=== PATIENT | female | born 1960 | race Caucasian/White ===

== ENCOUNTER 2017-05-13 10:20 | Emergency (ER) | payer OTHER ==
--- NOTE | 2017-05-13 10:38 | PHYS DOC ---
Past Medical History Past Medical History: CAD, Diabetes-Type II, Hypertension Past Surgical History: Coronary Bypass Surgery, Hysterectomy, Other Additional Past Surgical Histo: CABG X3 2004, gastric bypass 2009 Alcohol Use: None Drug Use: None Adult General Chief Complaint Chief Complaint: ABNORMAL LABS [facility] HPI Patient is a 56 year old female presents to the emergency department with a history of elevated K+ patient had blood work completed last Wednesday. She was at the GI clinic today and sent her in to the emergency department. Patient also states she is having right upper abdominal pain and discomfort. Pain is a 2 /10. Patient states that she was suppose to have CT scan of her abd and pelvis in which the doctors office has not completed paper work appropriate for the procedure. Patient denies fever, chills, nausea or vomiting. Review of Systems Review of Systems Constitutional: Denies fever or chills [] Eyes: Denies change in visual acuity, redness, or eye pain [] HENT: Denies nasal congestion or sore throat [] Respiratory: Denies cough or shortness of breath [] Cardiovascular: No additional information not addressed in HPI [] GI: right upper quadrant abdominal pain, denies nausea, vomiting, bloody stools or diarrhea [] : Denies dysuria or hematuria [] Musculoskeletal: Denies back pain or joint pain [] Integument: Denies rash or skin lesions [] Neurologic: Denies headache, focal weakness or sensory changes [] Endocrine: Denies polyuria or polydipsia [] Patient also C/o elevated K+ per Dr Office Current Medications Current Medications Current Medications Medications (Trade) Dose Ordered Sig/Henrietta Start Time Stop Time Status Last Admin Dose Admin Info (Do NOT chart on this entry -- for MONITORING) 1 each PRN DAILY PRN 05/13/17 11:15 05/13/17 13:30 DC Iohexol (Omnipaque 300 Mg/ml) 60 ml 1X ONCE 05/13/17 11:15 05/13/17 11:16 DC 05/13/17 11:28 60 ML Sodium Chloride 1,000 ml @ 1,000 mls/hr 1X ONCE 05/13/17 11:15 05/13/17 12:14 DC 05/13/17 11:19 1,000 MLS/HR Allergies Allergies Allergies Coded Allergies Type Severity Reaction Last Updated Verified Penicillins Allergy Unknown 12/18/14 No cephalexin Allergy Unknown 10/18/14 No codeine Allergy Unknown 10/18/14 No hydrochlorothiazide Allergy Unknown 10/18/14 No morphine Allergy Unknown 10/18/14 No triamterene Allergy Unknown 10/18/14 No Physical Exam Physical Exam Constitutional: Well developed, well nourished, no acute distress, non-toxic appearance. [] HENT: Normocephalic, atraumatic, bilateral external ears normal, oropharynx moist, no oral exudates, nose normal. [] Eyes: PERRLA, EOMI, conjunctiva normal, no discharge. [] Neck: Normal range of motion, no tenderness, supple, no stridor. [] Cardiovascular:Heart rate regular rhythm, no murmur [] Lungs & Thorax: Bilateral breath sounds clear to auscultation [] Abdomen: Bowel sounds hypoactive, soft, right upper quadrant tenderness, no masses, no pulsatile masses. Positive Leiva sign. Skin: Warm, dry, no erythema, no rash. [] Back: No tenderness Extremities: No tenderness, no cyanosis, no clubbing, ROM intact, no edema. [] Neurologic: Alert and oriented X 3, normal motor function, normal sensory function, no focal deficits noted. [] Psychologic: Affect normal, judgement normal, mood normal. [] Current Patient Data Vital Signs Vital Signs Date Time Temp Pulse Resp B/P (MAP) Pulse Ox O2 Delivery O2 Flow Rate FiO2 05/13/17 13:28 74 150/60 (90) 98 05/13/17 10:45 Room Air 05/13/17 10:31 98.3 18 98.3 Lab Values Laboratory Tests Test 05/13/17 10:30 White Blood Count 5.9 x10^3/uL (4.0-11.0) Red Blood Count 4.56 x10^6/uL (3.50-5.40) Hemoglobin 12.2 g/dL (12.0-15.5) Hematocrit 36.8 % (36.0-47.0) Mean Corpuscular Volume 81 fL (79-100) Mean Corpuscular Hemoglobin 27 pg (25-35) Mean Corpuscular Hemoglobin Concent 33 g/dL (31-37) Red Cell Distribution Width 17.2 % (11.5-14.5) H Platelet Count 273 x10^3/uL (140-400) Neutrophils (%) (Auto) 65 % (31-73) Lymphocytes (%) (Auto) 25 % (24-48) Monocytes (%) (Auto) 7 % (0-9) Eosinophils (%) (Auto) 2 % (0-3) Basophils (%) (Auto) 1 % (0-3) Neutrophils # (Auto) 3.9 x10^3uL (1.8-7.7) Lymphocytes # (Auto) 1.5 x10^3/uL (1.0-4.8) Monocytes # (Auto) 0.4 x10^3/uL (0.0-1.1) Eosinophils # (Auto) 0.1 x10^3/uL (0.0-0.7) Basophils # (Auto) 0.1 x10^3/uL (0.0-0.2) Sodium Level 134 mmol/L (136-145) L Potassium Level 4.5 mmol/L (3.5-5.1) Chloride Level 99 mmol/L (98-107) Carbon Dioxide Level 24 mmol/L (21-32) Anion Gap 11 (6-14) Blood Urea Nitrogen 22 mg/dL (7-20) H Creatinine 1.2 mg/dL (0.6-1.0) H Estimated GFR (Cockcroft-Gault) 46.5 BUN/Creatinine Ratio 18 (6-20) Glucose Level 282 mg/dL (70-99) H Calcium Level 9.5 mg/dL (8.5-10.1) Total Bilirubin 0.4 mg/dL (0.2-1.0) Aspartate Amino Transferase (AST) 20 U/L (15-37) Alanine Aminotransferase (ALT) 18 U/L (14-59) Alkaline Phosphatase 79 U/L (46-116) Total Protein 7.6 g/dL (6.4-8.2) Albumin 3.3 g/dL (3.4-5.0) L Albumin/Globulin Ratio 0.8 (1.0-1.7) L Amylase Level 35 U/L (25-115) Lipase 96 U/L (73-393) Laboratory Tests 05/13/17 10:30 Laboratory Tests 05/13/17 10:30 EKG EKG EKG completed with HR 85 SR noted no STEMI per Dr Joo Martinez Radiology/Procedures Radiology/Procedures [][facility] [address] [place] [address] IMAGING REPORT Signed PATIENT: AMAYA HAYS ACCOUNT: [id number] : 1960 LOCATION: ER AGE: 56 SEX: F EXAM STATUS: REG ER ORD. PHYSICIAN: ASIF ALDRIDGE APRN REASON: right upper quadrant abdominal pain PROCEDURE: CT ABD PELV W/ IV CONTRST ONLY CT of the abdomen and pelvis with contrast, 05/13/2017: History: Right upper quadrant pain Multidetector CT imaging was performed following an IV bolus injection of iodinated contrast material. No oral contrast material was administered for this study. There are mild peripheral opacities in both lung bases compatible with atelectasis and/or scarring. There is slight interlobular septal thickening in the lung bases. No hepatic mass or bile duct dilatation is seen. There is a small area of slightly increased density along the posterior wall of the gallbladder raising the possibility of sludge or small calculi. No pericholecystic edema is seen. No pancreatic abnormality is detected. The spleen is of normal size. Calcifications in the hilar regions of both kidneys appear to be vascular. There is no evidence of a renal mass or hydronephrosis. The ureters are unremarkable. There is moderate calcific plaquing of the abdominal aorta and its branches. There is no evidence of aneurysm. No abdominal or pelvic adenopathy is seen. The uterus is surgically absent. The appendix shows no abnormality. There are surgical sutures related to the stomach and small bowel. There is a small focus of bowel dilatation at an anastomotic site in the left midabdomen. There is no general bowel loop dilatation to suggest significant obstruction. No free fluid or free air is evident in the abdomen or pelvis. IMPRESSION: 1. Previous gastric and small bowel surgery. 2. Tiny dependent opacity in the gallbladder suggesting sludge versus tiny gallstones. 3. No acute abdominal or pelvic abnormality is detected. PQRS Compliance Statement: One or more of the following individualized dose reduction techniques were utilized for this examination: 1. Automated exposure control 2. Adjustment of the mA and/or kV according to patient size 3. Use of iterative reconstruction technique DICTATED and SIGNED BY: ROSA STILES MD DATE: 05/13/17 1211 CC: ASIF ALDRIDGE APRN; ABE MARTINEZ DO; STEPHANIE OCASIO MD ~ Course & Med Decision Making Course & Med Decision Making Pertinent Labs and Imaging studies reviewed. (See chart for details) Patient's CBC, CMP are within normal limits. Patient's potassium is 4.5. Patient states that the doctors office the potassium was 6.1. Explained to patient that the results from the previous lab draw that was 6.1 maybe slightly hemolyzed causing it to be elevated. Patient's ultrasound is still pending at this time. Her BUN/creatinine are slightly elevated patient states that she does not drink very much fluid at home. She is provided with IV fluid here in the emergency department. Anticipate discharging the patient home once the IV fluids are completed in these CAT scan results are completed. CT results are negative as the gallbladder shows sludge as opposed to gallstones. Patient will be recommended to avoid fried greasy fatty foods. She' ll be recommended to drink plenty of fluids such as water Gatorade or propel. Patient will be discharged home in stable condition signs symptoms to return back to emergency department as been provided. Patient agrees with discharge instructions treatment regimens and follow-up recommendations. [] Dragon Disclaimer Dragon Disclaimer This electronic medical record was generated, in whole or in part, using a voice recognition dictation system. Departure Departure Impression: Primary Impression: Abdominal pain Additional Impression: Serum potassium elevated Disposition: HOME, SELF-CARE Condition: STABLE Referrals: STEPHANIE OCASIO MD (PCP) Patient Instructions: Abdominal Pain (Nonspecific) Additional Instructions: Your blood work was within normal limits. Your CT scan shows sludge in the gallbladder area does not show any gallstones. Avoid fried greasy fatty foods. Keep your appointment with the GI physicians if you have any follow-up appointments. Follow-up to primary care physician in the next week. Return back to emergency department sign symptoms of become worse. Problem Qualifiers ASIF ALDRIDGE APRN May 13, 2017 10:38
[2017-05-13 10:44] LABS: BASO # 0.1 x10^3/uL (0.0-0.2); BASO % 1 % (0-3); EOS % 2 % (0-3); HEMATOCRIT 36.8 % (36.0-47.0); HEMOGLOBIN 12.2 g/dL (12.0-15.5); LYMPH # 1.5 x10^3/uL (1.0-4.8); LYMPH % 25 % (24-48); MEAN CORPUSCULAR HEMOGLOBIN 27 pg (25-35); MEAN CORPUSCULAR HGB CONC 33 g/dL (31-37); MEAN CORPUSCULAR VOLUME 81 fL (79-100); MONO % 7 % (0-9); NEUT % 65 % (31-73); PLATELET COUNT 273 x10^3/uL (140-400); RED BLOOD COUNT 4.56 x10^6/uL (3.50-5.40); RED CELL DISTRIBUTION WIDTH 17.2 % (11.5-14.5); WHITE BLOOD COUNT 5.9 x10^3/uL (4.0-11.0)
[2017-05-13 10:53] LABS: CALCIUM 9.5 mg/dL (8.5-10.1); CREATININE 1.2 mg/dL (0.6-1.0); GFR 46.5; POTASSIUM 4.5 mmol/L (3.5-5.1)
[2017-05-13 11:00] LABS: ALBUMIN 3.3 g/dL (3.4-5.0); ALBUMIN/GLOBULIN RATIO 0.8 (1.0-1.7); TOTAL BILIRUBIN 0.4 mg/dL (0.2-1.0); TOTAL PROTEIN 7.6 g/dL (6.4-8.2)
[2017-05-13 11:01] LABS: AMYLASE 35 U/L (25-115)
[2017-05-13] MEDS ORDERED: CONTRAST GIVEN MC PRN (11:15)
[2017-05-13] MEDS ORDERED: IOHEXOL 300 MG/ML 75 ML VIAL IV ONE (11:15)
[2017-05-13] MEDS ORDERED: IV NORMAL SALINE 1000ML BAG 1,000 ML IV ONE (11:15)
--- NOTE | 2017-05-13 11:24 | EKG ---
[facility] [address] [place] [address] Test Date: 2017-05-13 Test Time: 10:35:46 Pat Name: AMAYA HAYS Department: Room: Gender: F [employer] Up: : 1960 Requested By: ASIF ALDRIDGE Order Number: [id number] Reading MD: Measurements Intervals Bartlett Rate: 85 P: 35 UT: 160 QRS: 24 QRSD: 96 T: 61 QT: 378 QTc: 455 Interpretive Statements SINUS RHYTHM QRS(T) CONTOUR ABNORMALITY CONSIDER ANTEROSEPTAL MYOCARDIAL DAMAGE ST & T ABNORMALITY, CONSIDER HIGH LATERAL ISCHEMIA OR LEFT VENTRICULAR STRAIN ABNORMAL ECG RI6.01 No previous ECG available for comparison
--- NOTE | 2017-05-13 12:21 | RAD ---
CT of the abdomen and pelvis with contrast, 05/13/2017: History: Right upper quadrant pain Multidetector CT imaging was performed following an IV bolus injection of iodinated contrast material. No oral contrast material was administered for this study. There are mild peripheral opacities in both lung bases compatible with atelectasis and/or scarring. There is slight interlobular septal thickening in the lung bases. No hepatic mass or bile duct dilatation is seen. There is a small area of slightly increased density along the posterior wall of the gallbladder raising the possibility of sludge or small calculi. No pericholecystic edema is seen. No pancreatic abnormality is detected. The spleen is of normal size. Calcifications in the hilar regions of both kidneys appear to be vascular. There is no evidence of a renal mass or hydronephrosis. The ureters are unremarkable. There is moderate calcific plaquing of the abdominal aorta and its branches. There is no evidence of aneurysm. No abdominal or pelvic adenopathy is seen. The uterus is surgically absent. The appendix shows no abnormality. There are surgical sutures related to the stomach and small bowel. There is a small focus of bowel dilatation at an anastomotic site in the left midabdomen. There is no general bowel loop dilatation to suggest significant obstruction. No free fluid or free air is evident in the abdomen or pelvis. IMPRESSION: 1. Previous gastric and small bowel surgery. 2. Tiny dependent opacity in the gallbladder suggesting sludge versus tiny gallstones. 3. No acute abdominal or pelvic abnormality is detected. PQRS Compliance Statement: One or more of the following individualized dose reduction techniques were utilized for this examination: 1. Automated exposure control 2. Adjustment of the mA and/or kV according to patient size 3. Use of iterative reconstruction technique
[2017-05-13 13:28] VITALS: BP 150/60
== END 2017-05-13 13:11 | disposition home or self-care (01) ==
LOC: ER 10:20
DX: R10.11 Right upper quadrant pain (principal); R74.8 Abnormal levels of other serum enzymes; I25.10 Atherosclerotic heart disease of native coronary artery without angina pectoris; E11.9 Type 2 diabetes mellitus without complications; I10 Essential (primary) hypertension; Z95.1 Presence of aortocoronary bypass graft; Z98.84 Bariatric surgery status; Z90.710 Acquired absence of both cervix and uterus; Z88.0 Allergy status to penicillin; Z88.1 Allergy status to other antibiotic agents; Z88.5 Allergy status to narcotic agent; Z88.8 Allergy status to other drugs, medicaments and biological substances
CPT/HCPCS: 36415; 74177; 80053; 82150; 83690; 85027; 93005; 96360; 99285; J7030; Q9967

== ENCOUNTER 2018-02-14 16:47 | Emergency (ER) | payer OTHER ==
[2018-02-14] MEDS: KETOROLAC 60 MG/2 ML INJ. IM (18:12)
[2018-02-14] MEDS: ORPHENADRINE CITRATE 60 MG/2 ML VIAL. IM (18:12)
== END 2018-02-14 18:25 | disposition home or self-care (01) ==
LOC: ER 16:47
DX: M54.42 Lumbago with sciatica, left side (principal); M25.551 Pain in right hip; E11.9 Type 2 diabetes mellitus without complications; E78.00 Pure hypercholesterolemia, unspecified; I11.9 Hypertensive heart disease without heart failure; Z95.1 Presence of aortocoronary bypass graft; Z98.84 Bariatric surgery status; Z90.710 Acquired absence of both cervix and uterus; Z90.49 Acquired absence of other specified parts of digestive tract; Z88.0 Allergy status to penicillin; Z88.1 Allergy status to other antibiotic agents; Z88.5 Allergy status to narcotic agent; Z88.8 Allergy status to other drugs, medicaments and biological substances
CPT/HCPCS: 96372; 99284-25; J1885; J2360

== ENCOUNTER 2021-08-08 15:37 | Inpatient (IN) | payer OTHER ==
[~2021-08-08] VITALS: Ht 162.6 cm; Wt 136.8 kg
[~2021-08-08 15:37] MED LIST: HYDR-3164 PO; ORPH100T PO; PRED50TA PO
--- NOTE | 2021-08-08 15:58 | PHYS DOC ---
Past Medical History Past Medical History: Cancer, Diabetes-Type II, High Cholesterol, Heart D isease, Hypertension Additional Past Medical Histor: UTERINE CA, Past Surgical History: Cholecystectomy, Coronary Bypass Surgery, Hysterectomy, Other Additional Past Surgical Histo: CABG X3 2003, gastric bypass 2008, CAROTID SX, CATARACTS BILAT Smoking Status: Former Smoker Alcohol Use: Rarely Drug Use: None General Adult EDM: Chief Complaint: Fall HPI: HPI: 61-year-old female with a history of super morbid obesity, lymphedema, frequent falls presents the emergency department with a fall off her toilet earlier today. She reports that she was trying to get up off the toilet, was unable to power herself and eventually fell onto her knees and then onto her right side. She now complains of pain in the right elbow and right shoulder area. She denies any head trauma, loss of consciousness or any preceding symptoms. The patient denies nausea, vomiting, fever, chills, shortness of breath, abdominal pain, urinary symptoms, cough, recent trauma, or any other complaints. Review of Systems: Review of Systems: ROS otherwise reviewed as negative except for what was mentioned in HPI Heart Score: C/O Chest Pain: No Allergies: Allergies: Allergies Coded Allergies Type Severity Reaction Last Updated Verified Penicillins Allergy Intermediate 02/14/18 No cephalexin Allergy Intermediate 02/14/18 No codeine Allergy Intermediate 02/14/18 No hydrochlorothiazide Allergy Intermediate 02/14/18 No morphine Allergy Intermediate 02/14/18 No triamterene Allergy Intermediate 02/14/18 No Physical Exam: PE: Constitutional: Super morbidly obese, chronically ill appearance. Anxious. HENT: Atraumatic, bilateral external ears normal, nose normal. Eyes: PERRLA, EOMI, conjunctiva normal, no discharge. Neck: Normal range of motion, supple, no stridor. Cardiovascular: Heart rate regular rhythm. 2+ radial pulses Lungs & Thorax: No respiratory distress, symmetrical expansion. Abdomen: Soft, no tenderness Skin: Warm, dry. Extremities: Right elbow tenderness, right shoulder tenderness, no deformity, no overlying skin changes. chronic lymphedema in lower extremities Neurologic: Alert and oriented X 3, normal motor function, normal sensory function, no focal deficits noted. GCS 15. Current Patient Data: Vital Signs: Vital Signs Date Time Temp Pulse Resp B/P (MAP) Pulse Ox O2 Delivery O2 Flow Rate FiO2 10/8/21 15:40 98.5 101 22 160/76 (104) 96 Room Air 98.5 Radiology/Procedures: Radiology/Procedures: PROCEDURE: SHOULDER 2+V RIGHT Right shoulder 3 views: Reason for examination: Pain. No acute fracture or dislocation is seen. The bone density is normal. No abnormal periosteal reaction is seen. There is some mild degenerative change at the acromioclavicular joint. Remaining joint spaces are fairly well-maintained. IMPRESSION: Mild degenerative change at the acromioclavicular joint. No acute abnormality seen at the right shoulder. Electronically signed by: Courtney Soto MD (08/08/2021 4:36 PM) PROCEDURE: ELBOW RIGHT 3V EXAM: AP, lateral and radial head views of the right elbow DATE: 08/08/2021 4:28 PM INDICATION: Reason: right elbow pain / Spl. Instructions: / History: COMPARISON: No Prior FINDINGS: No elbow joint effusion. No acute fracture or dislocation. Vascular calcifications are seen. No significant soft tissue swelling. IMPRESSION: No acute fracture or dislocation. Electronically signed by: Santana Gale MD (08/08/2021 4:33 PM) Course & Med Decision Making: Course & Med Decision Making Patient is able to do her activities of daily living and her is unable to care for her, as he is also morbidly obese, does not have the strength to get her up off the toilet or move around the bed and the patient states that she has soiled herself multiple times because she cannot move. She would likely benefit from PT/OT, placement in either a rehab facility or [facility] s ervices. I offered admission to the patient and her , who discussed it and would prefer to be admitted due to concerns for ability to take care of the patient at home. Dr. Edwards to admit to the hospital Departure Departure Impression: Primary Impression: Falls frequently Additional Impression: Failure to thrive in adult Disposition: 09 ADMITTED INPATIENT Admitting Physician: ALFONSO Cook) Referrals: STEPHANIE OCASIO MD (PCP) BATOOL STONE DO Aug 08, 2021 15:58
[2021-08-08] MEDS ORDERED: ACETAMINOPHEN 500 MG TABLET PO ONE (16:00)
--- NOTE | 2021-08-08 16:36 | RAD ---
EXAM: AP, lateral and radial head views of the right elbow DATE: 08/08/2021 4:28 PM INDICATION: Reason: right elbow pain / Spl. Instructions: / History: COMPARISON: No Prior FINDINGS: No elbow joint effusion. No acute fracture or dislocation. Vascular calcifications are seen. No signi ficant soft tissue swelling. IMPRESSION: No acute fracture or dislocation. Electronically signed by: Santana Gale MD (08/08/2021 4:33 PM) [id number]
--- NOTE | 2021-08-08 16:38 | RAD ---
Right shoulder 3 views: Reason for examination: Pain. No acute fracture or dislocation is seen. The bone density is normal. No abnormal periosteal reaction is seen. There is some mild degenerative change at the acromioclavicular joint. Remaining joint spac es are fairly well-maintained. IMPRESSION: Mild degenerative change at the acromioclavicular joint. No acute abnormality seen at the right shoulder. Electronically signed by: Courtney Soto MD (08/08/2021 4:36 PM) VANESSA
[2021-08-08] MEDS ORDERED: ONDANSETRON PF 4 MG/2 ML VIAL. IVP PRN (17:30)
[2021-08-08] MEDS ORDERED: ACETAMINOPHEN 325 MG TABLET. PO PRN (17:30)
[2021-08-08] MEDS ORDERED: fentaNYL PF VIAL 100 MCG/2 ML VIAL IVP PRN (17:30)
[2021-08-08 18:08] LABS: BASO % 0 % (0-3); EOS % 1 % (0-3); HEMATOCRIT 32.5 % (36.0-47.0); HEMOGLOBIN 10.2 g/dL (12.0-15.5); LYMPH # 0.4 x10^3/uL (1.0-4.8); LYMPH % 6 % (24-48); MEAN CORPUSCULAR HEMOGLOBIN 28 pg (25-35); MEAN CORPUSCULAR HGB CONC 31 g/dL (31-37); MEAN CORPUSCULAR VOLUME 90 fL (79-100); MONO # 0.3 x10^3/uL (0.0-1.1); MONO % 5 % (0-9); NEUT # 5.4 x10^3/uL (1.8-7.7); NEUT % 88 % (31-73); PLATELET COUNT 239 x10^3/uL (140-400); RED CELL DISTRIBUTION WIDTH 19.8 % (11.5-14.5); WHITE BLOOD COUNT 6.2 x10^3/uL (4.0-11.0)
[2021-08-08 18:12] LABS: CREATININE 1.6 mg/dL (0.6-1.0); GFR 32.8; POTASSIUM 4.2 mmol/L (3.5-5.1)
[2021-08-08] MEDS: oxyCODONE/APAP 10/325 1 TAB TABLET PO PRN ×2 (18:30→22:22)
--- NOTE | 2021-08-08 18:33 | HP ---
ADMIT DATE: 08/08/2021 CHIEF COMPLAINT: Falls, bruising, weakness, probable failure to thrive. HISTORY OF PRESENT ILLNESS: The patient is a pleasant 61-year-old female who appears older than her stated age. She is obese. She has chronic lymphedema. Her lower extremities are swollen with some cellulitis and some oozing wounds. She keeps falling. Apparently, she fell off her toilet today, she was trying to get up off the toilet. Her could not get her back up when she was on the ground. They had to call EMS. I discussed the case with the ER physician. It appears she needs placement. We are going to admit the patient, do some wound care and get geriatric social work professor involved and see if maybe we can get shelter and/or long-term care placement. PAST MEDICAL HISTORY: Chronic pain and she states she is on oxycodone every 4 hours, narcotic dependence, uterine cancer, diabetes, hypertension, hyperlipidemia, obesity, cholecystectomy, coronary bypass surgery, hysterectomy, gastric bypass, carotid surgery, cataract surgery, previous tobacco abuse. ALLERGIES: PENICILLIN, CEPHALEXIN, CODEINE, HYDROCHLOROTHIAZIDE, MORPHINE AND TRIAMTERENE. FAMILY HISTORY: Diabetes. 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 She states she did not finish her degree. She is . Her , Ric, is here. He seems to be good support for her. She quit smoking years ago. No drink or drugs. MEDICATIONS: Reviewed, please refer to the MRAD. REVIEW OF SYSTEMS: GENERAL: She complains of frequent falls. SKIN: No bruising, hair changes or rashes. EYES: No blurred, double or loss of vision. NOSE AND THROAT: No history of nosebleeds, hoarseness or sore throat. HEART: No history of palpitations, chest pain or shortness of breath on exertion. LUNGS: Denies cough, hemoptysis, wheezing or shortness of breath. GASTROINTESTINAL: Denies changes in appetite, nausea, vomiting, diarrhea or constipation. GENITOURINARY: No history of frequency, urgency, hesitancy or nocturia. NEUROLOGIC: She complains of frequent falls. PSYCHIATRIC: No history of panic, anxiety or depression. ENDOCRINE: No history of heat or cold intolerance, polyuria or polydipsia. EXTREMITIES: She complains of diffuse pain and keeps requesting more oxycodone. SKIN: She complains of lower extremity wounds. PHYSICAL EXAMINATION: VITALS: Within normal limits and are stable. GENERAL: She is weak and depressed. HEENT: Normal cephalic atraumatic, external auditory canals are patent. EYES: Extraocular muscles are intact, pupils are equally round and reactive to light and accommodation. MUSCULOSKELETAL: Well developed, well nourished, good range of motion. ENDOCRINE: No thyromegaly was palpated. LYMPHATICS: No cervical chain or axillary nodes were noted. HEMATOPOIETIC: No bruising. NECK: Supple, no JVD, no thyromegaly was noted. LUNGS: Clear to auscultation in all lung villagomez without rhonchi or wheezing. HEART: RRR, S1, S2 present. Peripheral pulses intact, no obvious murmurs were noted. ABDOMEN: Obese with decreased bowel sounds. EXTREMITIES: She has 3-4+ edema with some draining wounds. There is some underlying cellulitis. There is also what appears to be possibly fecal debris on the legs. NEUROLOGIC: She is weak and depressed. PSYCHIATRIC: She is depressed sounds. SKIN: No ulcerations or rashes, good skin turgor, no jaundice. VASCULAR: Good capillary refill, neurovascular bundle appears to be intact. LABORATORY DATA: Pending. Elbow x-ray negative. Shoulder x-ray shows degenerative joint disease. ASSESSMENT AND PLAN: Recurrent falls, obesity, chronic lower extremity cellulitis, edema, wounds, depression, anxiety and narcotic dependence in an older female who has the above noted comorbidities. Clinically, she looks like she could possibly use shelter and/or long-term care placement. For now, we will get the Wound Care team involved, IV antibiotics. clinical services assistant for possible placement. Home meds. Deep venous thrombosis prophylaxis. Full code. P.r.n. Zofran, p.r.n. Tylenol. Frequent labs. Prognosis long-term guarded, if she does not lose some weight. DANIELLA/JANINE DR: Jesika TID: [id number]
[2021-08-08 20:15] VITALS: BP 111/59
[2021-08-08] MEDS ORDERED: INSULIN LISPRO 300 UNITS/3 ML VIAL. SQ ONE (22:00)
[2021-08-08 23:00] VITALS: BP 120/53
[2021-08-09] MEDS ORDERED: POTA10TA6 PO (02:28)
[2021-08-09] MEDS ORDERED: CRESTOR5 MG PO (02:28)
[2021-08-09] MEDS ORDERED: ASPI-630 PO (02:28)
[2021-08-09] MEDS ORDERED: ALLO300T PO (02:28)
[2021-08-09] MEDS ORDERED: MAGN400T48 PO (02:28)
[2021-08-09] MEDS ORDERED: IRON1CAP14 PO (02:28)
[2021-08-09] MEDS ORDERED: CLOP75TA PO (02:28)
[2021-08-09] MEDS ORDERED: PANT40TA77 PO (02:28)
[2021-08-09] MEDS ORDERED: BUME1TAB3 PO (02:28)
[2021-08-09] MEDS ORDERED: METO25TA4 PO (02:28)
[2021-08-09] MEDS: oxyCODONE/APAP 10/325 1 TAB TABLET PO PRN ×5 (02:30→20:27)
[2021-08-09 03:15] VITALS: BP 136/67
[2021-08-09 07:00] VITALS: BP 127/53
[2021-08-09] MEDS: INSULIN LISPRO 300 UNITS/3 ML VIAL. SQ SCH ×3 (08:33→16:30)
[2021-08-09 08:36] LABS: CALCIUM 8.1 mg/dL (8.5-10.1); CREATININE 1.5 mg/dL (0.6-1.0); GFR 35.3; POTASSIUM 4.4 mmol/L (3.5-5.1)
[2021-08-09 08:37] LABS: BASO % 1 % (0-3); EOS # 0.1 x10^3/uL (0.0-0.7); EOS % 2 % (0-3); HEMATOCRIT 30.4 % (36.0-47.0); HEMOGLOBIN 9.7 g/dL (12.0-15.5); LYMPH # 0.5 x10^3/uL (1.0-4.8); LYMPH % 10 % (24-48); MEAN CORPUSCULAR HEMOGLOBIN 29 pg (25-35); MEAN CORPUSCULAR HGB CONC 32 g/dL (31-37); MEAN CORPUSCULAR VOLUME 92 fL (79-100); MONO # 0.3 x10^3/uL (0.0-1.1); MONO % 7 % (0-9); NEUT # 3.7 x10^3/uL (1.8-7.7); NEUT % 80 % (31-73); PLATELET COUNT 222 x10^3/uL (140-400); RED BLOOD COUNT 3.32 x10^6/uL (3.50-5.40); RED CELL DISTRIBUTION WIDTH 19.9 % (11.5-14.5); WHITE BLOOD COUNT 4.7 x10^3/uL (4.0-11.0)
[2021-08-09] MEDS: ASPIRIN CHEWABLE 81 MG TABLET. PO SCH (09:14)
[2021-08-09] MEDS: BUMETANIDE 1 MG TABLET. PO SCH ×2 (09:15→15:20)
[2021-08-09] MEDS: POTASSIUM CHLORIDE 20 MEQ TABLET.ER. PO SCH (09:15)
[2021-08-09] MEDS: ALLOPURINOL 300 MG TABLET. PO SCH (09:15)
[2021-08-09] MEDS: CLOPIDOGREL BISULFATE 75 MG TABLET PO SCH (09:15)
[2021-08-09] MEDS: PANTOPRAZOLE 40 MG TABLET.DR. PO SCH ×2 (09:15→18:31)
--- NOTE | 2021-08-09 10:51 | CONS ---
DATE OF CONSULTATION: 08/09/2021 REFERRING PHYSICIAN: Jonah Edwards DO REASON FOR CONSULTATION: Bilateral lower extremity cellulitis. HISTORY OF PRESENT ILLNESS: A 61-year-old female with history of chronic lymphedema, who was undergoing treatment by Dr. Woodard at [facility] with IV vancomycin, which had improved the lower extremity swelling and cellulitis with oozing wounds and maggots per patient report. She kept on falling. Creatinine got worse. PICC line was taken out due to concerns with ANDREW from vancomycin. The patient was brought here for further evaluation and treatment. The patient needs placement. at bedside. The patient was started on Levaquin which she is tolerating well. PAST MEDICAL HISTORY: Chronic pain, narcotic dependence, uterine cancer, diabetes, hypertension, lymphedema, cholecystectomy, obesity, ANDREW, coronary bypass surgery, hysterectomy, gastric bypass, carotid surgery, cataract surgery, and previous tobacco abuse. ALLERGIES: PENICILLIN CAUSES WELTS, CEPHALEXIN, CIPRO, BACTRIM, CODEINE, HYDROCHLOROTHIAZIDE, MORPHINE AND TRIAMTERENE. FAMILY HISTORY: Diabetes. SOCIAL HISTORY: , lives with who is at bedside. Quit smoking years ago. No drugs. Does not drink. Has pets. CURRENT MEDICATIONS: Levaquin. Other medications reviewed in medication list. REVIEW OF SYSTEMS: Negative except for above in HPI. PHYSICAL EXAMINATION: VITAL SIGNS: Stable. GENERAL: Alert and oriented x 3 female, in no acute distress, appears depressed. HEENT: Normocephalic, atraumatic. NECK: Supple, no JVD. LUNGS: Clear. HEART: S1, S2. ABDOMEN: Soft, obese. Bowel sounds present. EXTREMITIES: Chronic lymphedema with cobblestone changes, chronic. Some draining wounds. Mild cellulitis. Per patient it is appearing there is some fecal debris in the legs. NEUROLOGIC: Alert, awake, somewhat weak, depressed. PSYCHIATRIC: Depressed. DERMATOLOGIC: Warm, dry, no generalized rash except for above. LABORATORY DATA: WBC 4.7, hemoglobin 9.7, hematocrit 30.4, and platelets 222. Sodium 135, potassium 4.4, chloride 101, bicarb 28, BUN 15, creatinine 1.5, glucose 171, and calcium 8.1. IMAGING: Shoulder x-ray and elbow x-ray reviewed. IMPRESSION: 1. Chronic lymphedema with superimposed cellulitis, improving per patient report as per her treatment with IV vancomycin by Dr. Woodard. PICC line has been removed. 2. Acute kidney injury. 3. Recurrent fall. 4. Depression and anxiety. 5. Chronic pain, narcotic dependence. 6. HISTORY OF ALLERGIES TO PENICILLIN, CEPHALEXIN, TETRACYCLINE, CIPROFLOXACIN, AND ERYTHROMYCIN BASE. 7. Poor hygiene RECOMMENDATIONS: 1. Continue Levaquin as the patient is improving. States has tolerated that well in the past 2. Add micafungin. 3. Local care. 4. Maintain hygiene. 5. Elevate lower extremity. 6. Lymphedema care. Discussed with at bedside. Thank you for allowing me to participate in this patient's care. If you have any questions, do not hesitate to contact me. ROBERT IVAN: [place] TID: [id number] YULIET
[2021-08-09 11:00] VITALS: BP 146/61
[2021-08-09] MEDS: MICAFUNGIN 100 MG in IV DEXTROSE 5% 100ML 100 ML IV SCH (11:11)
[2021-08-09 15:00] VITALS: BP 127/45
--- NOTE | 2021-08-09 17:23 | PDOC ---
GENERAL General: Patient examined chart reviewed today is hospital day 2 for this patient with severe bilateral lymphedema with superimposed cellulitis and reported wounds on the posterior aspect of her legs. She has been dealing with severe elephantiasis for at least a couple of years she likes it with her renal insufficiency at the time of her cardiac cath couple of years ago. She is quite disheartened about her situation. Her is at bedside. They were following with the [facility] wound office for some time but quit because did not feel that they were improving. Unfortunately she has continued to weaken through the pandemic. Covid test is pending but neither of them have been out much. Patient will need long-term placement for care and mobilization. She is willing to consider trying another antidepressant as she knows that her low mood can impact her progress. Patient underwent Alejandro-en-Y gastric bypass in 2008 at [facility] [place] start weight was 327 pounds and she lost to about 250 pounds but has steadily gained since then. All other systems reviewed and negative. Time spent today is 30 minutes with greater than 50% in counseling and coordination of care most of which in discussion with patient. Problems: (1) Failure to thrive in adult (2) Chronic acquired lymphedema (3) Falls frequently (4) Morbid obesity (5) Chronic venous stasis dermatitis of both lower extremities VITAL SIGNS Vital Signs/I&O: Vital Signs Date Time Temp Pulse Resp B/P (MAP) Pulse Ox O2 Delivery O2 Flow Rate FiO2 08/09/21 15:25 Room Air 08/09/21 15:00 97.9 103 20 127/45 (72) 93 97.9 I & O 08/08/21 08/08/21 08/09/21 15:00 23:00 07:00 Intake Total 240 ml Balance 240 ml In general the patient is pleasant appropriately interactive alert and oriented x3 in no acute distress. She does express frustration at her situation denies suicidal ideation but tells me that she would welcome at any time HEENT exam is unremarkable Neck is soft and supple no adenopathy or thyromegaly noted Chest is clear to auscultation Heart S1-S2 normal regular rate and rhythm no murmurs or gallops are noted Abdomen notable for dense lymphedema in her distal pannus Bilateral lower extremities notable for severe elephantiasis with areas of bleeding and oozing ALLERGIES Allergies: Allergies Coded Allergies Type Severity Reaction Last Updated Verified Penicillins Allergy Intermediate WELTS 08/09/21 No Tetracyclines Allergy Intermediate 08/08/21 Yes alprazolam Allergy Intermediate 08/08/21 Yes cephalexin Allergy Intermediate 02/14/18 No ciprofloxacin Allergy Intermediate 08/08/21 Yes codeine Allergy Intermediate 02/14/18 No erythromycin base Allergy Intermediate 08/08/21 Yes hydrochlorothiazide Allergy Intermediate 02/14/18 No indomethacin Allergy Intermediate 08/08/21 Yes kiwi Allergy Intermediate 08/08/21 Yes matthew Allergy Intermediate 08/08/21 Yes morphine Allergy Intermediate 02/14/18 No shellfish derived Allergy Intermediate 08/08/21 Yes sulfamethoxazole Allergy Intermediate 08/08/21 Yes triamterene Allergy Intermediate 02/14/18 No trimethoprim Allergy Intermediate 08/08/21 Yes watermelon Allergy Intermediate 08/08/21 Yes MEDS Medications: Current Medications Medications (Trade) Dose Ordered Sig/Henrietta Start Time Stop Time Status Last Admin Dose Admin Acetaminophen (Tylenol) 650 mg PRN Q4HRS PRN 08/08/21 17:30 08/09/21 17:29 Acetaminophen/ Hydrocodone Bitart (Lortab 5/325) 1 tab PRN Q6HRS PRN 08/09/21 09:00 Allopurinol (Zyloprim) 300 mg DAILY 08/09/21 09:00 08/09/21 09:15 Aspirin (Aspirin Chewable) 81 mg DAILY 08/09/21 09:00 08/09/21 09:14 Bumetanide (Bumex) 1 mg BID92 08/09/21 09:00 08/09/21 15:20 Clopidogrel Bisulfate (Plavix) 75 mg DAILY 08/09/21 09:00 08/09/21 09:15 Fentanyl Citrate (Fentanyl 2ml Vial) 50 mcg PRN Q2HR PRN 08/08/21 17:30 08/09/21 17:29 08/09/21 08:54 Insulin Glargine (Lantus Syringe) 10 unit QHS 08/09/21 21:00 Insulin Human Lispro (HumaLOG) 6 units 1X ONCE 08/08/21 22:00 08/08/21 22:01 DC 08/08/21 22:27 Lactobacillus Rhamnosus (Culturelle) 1 cap BID 08/09/21 21:00 Levofloxacin/ Dextrose 100 ml @ 100 mls/hr Q24H 08/08/21 19:00 08/08/21 20:13 Magnesium Oxide (Magnesium Oxide) 400 mg QHS 08/09/21 21:00 Micafungin Sodium 100 mg/Dextrose 100 ml @ 100 mls/hr Q24H 08/09/21 10:00 08/09/21 11:11 Ondansetron HCl (Zofran) 4 mg PRN Q8HRS PRN 08/08/21 17:30 08/09/21 17:29 Oxycodone/ Acetaminophen (Percocet 10/325) 1 tab PRN Q4HRS PRN 08/08/21 18:30 08/09/21 15:25 Pantoprazole Sodium (Protonix) 40 mg BIDAC 08/09/21 09:00 08/09/21 09:15 Potassium Chloride (Klor-Con) 20 meq DAILYWBKFT 08/09/21 10:00 08/09/21 09:15 Current Medications Medications (Trade) Dose Ordered Sig/Henrietta Route PRN Reason Start Time Stop Time Status Last Admin Dose Admin Fentanyl Citrate (Fentanyl 2ml Vial) 50 mcg PRN Q2HR PRN IVP PAIN 08/08/21 17:30 08/09/21 17:29 08/09/21 08:54 Oxycodone/ Acetaminophen (Percocet 10/325) 1 tab PRN Q4HRS PRN PO MODERATE TO SEVERE PAIN 08/08/21 18:30 08/09/21 15:25 Levofloxacin/ Dextrose 100 ml @ 100 mls/hr Q24H IV 08/08/21 19:00 08/08/21 20:13 Insulin Human Lispro (HumaLOG) 6 units TIDAC SQ 08/09/21 07:30 08/09/21 11:30 Insulin Human Lispro (HumaLOG) 6 units 1X ONCE SQ 08/08/21 22:00 08/08/21 22:01 DC 08/08/21 22:27 Allopurinol (Zyloprim) 300 mg DAILY PO 08/09/21 09:00 08/09/21 09:15 Aspirin (Aspirin Chewable) 81 mg DAILY PO 08/09/21 09:00 08/09/21 09:14 Bumetanide (Bumex) 1 mg BID92 PO 08/09/21 09:00 08/09/21 15:20 Clopidogrel Bisulfate (Plavix) 75 mg DAILY PO 08/09/21 09:00 08/09/21 09:15 Pantoprazole Sodium (Protonix) 40 mg BIDAC PO 08/09/21 09:00 08/09/21 09:15 Potassium Chloride (Klor-Con) 20 meq DAILYWBKFT PO 08/09/21 10:00 08/09/21 09:15 Micafungin Sodium 100 mg/Dextrose 100 ml @ 100 mls/hr Q24H IV 08/09/21 10:00 08/09/21 11:11 LAB Lab: Laboratory Tests Test 08/08/21 17:50 08/08/21 21:21 08/09/21 01:39 08/09/21 07:10 White Blood Count 6.2 x10^3/uL (4.0-11.0) 4.7 x10^3/uL (4.0-11.0) Red Blood Count 3.60 x10^6/uL (3.50-5.40) 3.32 x10^6/uL (3.50-5.40) L Hemoglobin 10.2 g/dL (12.0-15.5) L 9.7 g/dL (12.0-15.5) L Hematocrit 32.5 % (36.0-47.0) L 30.4 % (36.0-47.0) L Mean Corpuscular Volume 90 fL (79-100) 92 fL (79-100) Mean Corpuscular Hemoglobin 28 pg (25-35) 29 pg (25-35) Mean Corpuscular Hemoglobin Concent 31 g/dL (31-37) 32 g/dL (31-37) Red Cell Distribution Width 19.8 % (11.5-14.5) H 19.9 % (11.5-14.5) H Platelet Count 239 x10^3/uL (140-400) 222 x10^3/uL (140-400) Neutrophils (%) (Auto) 88 % (31-73) H 80 % (31-73) H Lymphocytes (%) (Auto) 6 % (24-48) L 10 % (24-48) L Monocytes (%) (Auto) 5 % (0-9) 7 % (0-9) Eosinophils (%) (Auto) 1 % (0-3) 2 % (0-3) Basophils (%) (Auto) 0 % (0-3) 1 % (0-3) Neutrophils # (Auto) 5.4 x10^3/uL (1.8-7.7) 3.7 x10^3/uL (1.8-7.7) Lymphocytes # (Auto) 0.4 x10^3/uL (1.0-4.8) L 0.5 x10^3/uL (1.0-4.8) L Monocytes # (Auto) 0.3 x10^3/uL (0.0-1.1) 0.3 x10^3/uL (0.0-1.1) Eosinophils # (Auto) 0.0 x10^3/uL (0.0-0.7) 0.1 x10^3/uL (0.0-0.7) Basophils # (Auto) 0.0 x10^3/uL (0.0-0.2) 0.0 x10^3/uL (0.0-0.2) Sodium Level 135 mmol/L (136-145) L 135 mmol/L (136-145) L Potassium Level 4.2 mmol/L (3.5-5.1) 4.4 mmol/L (3.5-5.1) Chloride Level 101 mmol/L (98-107) 101 mmol/L (98-107) Carbon Dioxide Level 29 mmol/L (21-32) 28 mmol/L (21-32) Anion Gap 5 (6-14) L 6 (6-14) Blood Urea Nitrogen 52 mg/dL (7-20) H 51 mg/dL (7-20) H Creatinine 1.6 mg/dL (0.6-1.0) H 1.5 mg/dL (0.6-1.0) H Estimated GFR (Cockcroft-Gault) 32.8 35.3 Glucose Level 163 mg/dL (70-99) H 171 mg/dL (70-99) H Calcium Level 8.0 mg/dL (8.5-10.1) L 8.1 mg/dL (8.5-10.1) L Glucose (Fingerstick) 180 mg/dL (70-99) H 174 mg/dL (70-99) H Test 08/09/21 08:06 08/09/21 11:38 08/09/21 15:25 Glucose (Fingerstick) 160 mg/dL (70-99) H 170 mg/dL (70-99) H 205 mg/dL (70-99) H Laboratory Tests 08/08/21 17:50 08/09/21 07:10 Laboratory Tests 08/08/21 17:50 08/09/21 07:10 ASSESSMENT & PLAN A&P Plan as noted above This note was created using [employer] and may have omissions and/or errors due to the nature of real-time voice acid filler. Justifications for Admission Other Justification LINWOOD BEGUM MD Aug 09, 2021 17:23
[2021-08-09] MEDS: SERTRALINE 50 MG TABLET. PO SCH (18:31)
[2021-08-09 20:00] VITALS: BP 115/61
[2021-08-09] MEDS: MAGNESIUM OXIDE 400 MG TABLET PO SCH (20:28)
[2021-08-09] MEDS: LACTOBACILLUS RHAMNOSUS GG 1 CAPSULE. PO SCH (20:28)
[2021-08-09] MEDS: INSULIN GLARGINE SYRINGE. SQ SCH (21:00)
[2021-08-09] MEDS: ONDANSETRON PF 4 MG/2 ML VIAL. IVP PRN (22:29)
[2021-08-09 23:00] VITALS: BP 110/51
[2021-08-10] MEDS: oxyCODONE/APAP 10/325 1 TAB TABLET PO PRN ×6 (00:16→21:58)
[2021-08-10 03:00] VITALS: BP 145/54
[2021-08-10] MEDS: CALCIUM CARBONATE 500 MG TAB.CHEW PO PRN ×3 (03:51→17:32)
[2021-08-10] MEDS: ONDANSETRON PF 4 MG/2 ML VIAL. IVP PRN ×2 (04:23→11:35)
[2021-08-10 07:00] VITALS: BP 124/67
[2021-08-10] MEDS: INSULIN LISPRO 300 UNITS/3 ML VIAL. SQ SCH ×3 (07:30→17:38)
[2021-08-10 08:00] LABS: BASO % 1 % (0-3); EOS # 0.1 x10^3/uL (0.0-0.7); EOS % 3 % (0-3); HEMATOCRIT 32.2 % (36.0-47.0); HEMOGLOBIN 9.8 g/dL (12.0-15.5); LYMPH # 0.5 x10^3/uL (1.0-4.8); LYMPH % 12 % (24-48); MEAN CORPUSCULAR HEMOGLOBIN 29 pg (25-35); MEAN CORPUSCULAR HGB CONC 30 g/dL (31-37); MEAN CORPUSCULAR VOLUME 95 fL (79-100); MONO # 0.3 x10^3/uL (0.0-1.1); MONO % 7 % (0-9); NEUT # 3.2 x10^3/uL (1.8-7.7); NEUT % 77 % (31-73); PLATELET COUNT 218 x10^3/uL (140-400); RED BLOOD COUNT 3.41 x10^6/uL (3.50-5.40); RED CELL DISTRIBUTION WIDTH 19.8 % (11.5-14.5); WHITE BLOOD COUNT 4.1 x10^3/uL (4.0-11.0)
--- NOTE | 2021-08-10 08:41 | PDOC ---
Infectious Disease Note Subjective: Subjective Patient demands pain medication Legs are improving No fever, nausea, vomiting, diarrhea Vital Signs: Vital Signs Vital Signs Date Time Temp Pulse Resp B/P (MAP) Pulse Ox O2 Delivery O2 Flow Rate FiO2 08/10/21 07:00 98.0 107 24 124/67 (86) 93 Room Air 98.0 Physical Exam: PHYSICAL EXAM GENERAL: Alert and oriented x 3 female, in no acute distress, appears depressed. HEENT: Normocephalic, atraumatic. NECK: Supple, no JVD. LUNGS: Clear. HEART: S1, S2. ABDOMEN: Soft, obese. Bowel sounds present. EXTREMITIES: Chronic lymphedema with cobblestone changes, chronic. Some draining wounds. Mild cellulitis. Per patient it is appearing there is some fecal debris in the legs. NEUROLOGIC: Alert, awake, somewhat weak, depressed. PSYCHIATRIC: Depressed. DERMATOLOGIC: Warm, dry, no generalized rash except for above. LABORATORY DATA: WBC 4.7, hemoglobin 9.7, hematocrit 30.4, and platelets 222. Sodium 135, potassium 4.4, chloride 101, bicarb 28, BUN 15, creatinine 1.5, glucose 171, and calcium 8.1. IMAGING: Shoulder x-ray and elbow x-ray reviewed. Medications: Inpatient Meds: Medications reviewed. Labs: Lab Laboratory Tests Test 08/09/21 11:38 08/09/21 15:25 08/09/21 20:51 08/10/21 00:07 Glucose (Fingerstick) 170 mg/dL (70-99) 205 mg/dL (70-99) 184 mg/dL (70-99) 137 mg/dL (70-99) Test 08/10/21 06:55 08/10/21 08:04 White Blood Count 4.1 x10^3/uL (4.0-11.0) Red Blood Count 3.41 x10^6/uL (3.50-5.40) Hemoglobin 9.8 g/dL (12.0-15.5) Hematocrit 32.2 % (36.0-47.0) Mean Corpuscular Volume 95 fL (79-100) Mean Corpuscular Hemoglobin 29 pg (25-35) Mean Corpuscular Hemoglobin Concent 30 g/dL (31-37) Red Cell Distribution Width 19.8 % (11.5-14.5) Platelet Count 218 x10^3/uL (140-400) Neutrophils (%) (Auto) 77 % (31-73) Lymphocytes (%) (Auto) 12 % (24-48) Monocytes (%) (Auto) 7 % (0-9) Eosinophils (%) (Auto) 3 % (0-3) Basophils (%) (Auto) 1 % (0-3) Neutrophils # (Auto) 3.2 x10^3/uL (1.8-7.7) Lymphocytes # (Auto) 0.5 x10^3/uL (1.0-4.8) Monocytes # (Auto) 0.3 x10^3/uL (0.0-1.1) Eosinophils # (Auto) 0.1 x10^3/uL (0.0-0.7) Basophils # (Auto) 0.0 x10^3/uL (0.0-0.2) Glucose (Fingerstick) 145 mg/dL (70-99) Objective: Assessment: 1. Chronic lymphedema with superimposed cellulitis, improving per patient report as per her treatment with IV vancomycin by Dr. Woodard. PICC line has been removed. 2. Acute kidney injury. 3. Recurrent fall. 4. Depression and anxiety. 5. Chronic pain, narcotic dependence. 6. HISTORY OF ALLERGIES TO PENICILLIN, CEPHALEXIN, TETRACYCLINE, CIPROFLOXACIN, AND ERYTHROMYCIN BASE. Plan: Plan of Care Change antibiotics to Flagyl cefepime, micafungin Discussed with pharmacy monitor closely Local care. Maintain hygiene. Elevate lower extremity. Patient will need lymphedema care. Discussed with at bedside. KATHERYN BAKER MD Aug 10, 2021 08:41
[2021-08-10] MEDS: LACTOBACILLUS RHAMNOSUS GG 1 CAPSULE. PO SCH ×2 (08:44→20:58)
[2021-08-10] MEDS: ALLOPURINOL 300 MG TABLET. PO SCH (08:44)
[2021-08-10] MEDS: ASPIRIN CHEWABLE 81 MG TABLET. PO SCH (08:44)
[2021-08-10] MEDS: SERTRALINE 50 MG TABLET. PO SCH (08:45)
[2021-08-10] MEDS: BUMETANIDE 1 MG TABLET. PO SCH ×2 (08:45→13:49)
[2021-08-10] MEDS: CLOPIDOGREL BISULFATE 75 MG TABLET PO SCH (08:45)
[2021-08-10] MEDS: POTASSIUM CHLORIDE 20 MEQ TABLET.ER. PO SCH (08:45)
[2021-08-10] MEDS: PANTOPRAZOLE 40 MG TABLET.DR. PO SCH ×2 (08:45→17:32)
[2021-08-10 08:57] LABS: ALBUMIN 1.7 g/dL (3.4-5.0); ALBUMIN/GLOBULIN RATIO 0.4 (1.0-1.7); CREATININE 1.6 mg/dL (0.6-1.0); GFR 32.8; POTASSIUM 4.4 mmol/L (3.5-5.1); TOTAL BILIRUBIN 0.5 mg/dL (0.2-1.0); TOTAL PROTEIN 5.9 g/dL (6.4-8.2)
[2021-08-10] MEDS ORDERED: CEFEPIME HCL IV Push 1 GM VIAL. IVP ONE (09:00)
--- NOTE | 2021-08-10 10:49 | NUR ---
Patient refusing to be moved or turned. Patient also refusing to be changed. Patient has urine soaked sheets and refusing full bed change. Patient stated " you have to work fast to get that changed or dont change it at all." RN attempted to educate patient on skin break down. Patient refused education. Patient stated " I know, I know. Are you stressed? You seem like you are stressed. I already know what you are going to tell me." RN stated " I will come back later to change the sheets." Patient stated " I might not be ready, this is too painful." RN stated again that she will return.
[2021-08-10 11:00] VITALS: BP 148/68
[2021-08-10] MEDS: MICAFUNGIN 100 MG in IV DEXTROSE 5% 100ML 100 ML IV SCH (11:35)
--- NOTE | 2021-08-10 14:56 | PDOC ---
GENERAL General: Patient examined chart reviewed she is unaccompanied at bedside this afternoon. She is in better spirits today but nauseated. She is happy that she is very slowly making some progress with the physical therapist. She took her first dose of sertraline last night hoping it will help. Appreciate subspecialty support. We will defer to them on antimicrobial choice. Continue current management otherwise. Problems: (1) Morbid obesity (2) Chronic acquired lymphedema (3) Falls frequently (4) Chronic venous stasis dermatitis of both lower extremities VITAL SIGNS Vital Signs/I&O: Vital Signs Date Time Temp Pulse Resp B/P (MAP) Pulse Ox O2 Delivery O2 Flow Rate FiO2 08/10/21 14:19 Room Air 08/10/21 11:00 97.9 110 20 148/68 (94) 91 97.9 I & O0 08/09/21 08/09/21 08/10/21 15:00 23:00 07:00 Intake Total 120 ml 480 ml Output Total 400 ml Balance -280 ml 480 ml In general the patient is pleasant seems more upbeat today alert and oriented x3 no acute distress HEENT exam is unremarkable Chest is clear to auscultation Heart S1-S2 normal regular rate and rhythm no murmurs or gallops are noted Abdomen is obese no change from prior Extremity exam is notable for malodorous discharge dressings currently are dry and intact ALLERGIES Allergies: Allergies Coded Allergies Type Severity Reaction Last Updated Verified Penicillins Allergy Intermediate WELTS 08/09/21 No Tetracyclines Allergy Intermediate 08/08/21 Yes alprazolam Allergy Intermediate 08/08/21 Yes cephalexin Allergy Intermediate 02/14/18 No ciprofloxacin Allergy Intermediate 08/08/21 Yes codeine Allergy Intermediate 02/14/18 No erythromycin base Allergy Intermediate 08/08/21 Yes hydrochlorothiazide Allergy Intermediate 02/14/18 No indomethacin Allergy Intermediate 08/08/21 Yes kiwi Allergy Intermediate 08/08/21 Yes matthew Allergy Intermediate 08/08/21 Yes morphine Allergy Intermediate 02/14/18 No shellfish derived Allergy Intermediate 08/08/21 Yes sulfamethoxazole Allergy Intermediate 08/08/21 Yes triamterene Allergy Intermediate 02/14/18 No trimethoprim Allergy Intermediate 08/08/21 Yes watermelon Allergy Intermediate 08/08/21 Yes MEDS Medications: Current Medications Medications (Trade) Dose Ordered Sig/Henrietta Start Time Stop Time Status Last Admin Dose Admin Acetaminophen (Tylenol) 650 mg PRN Q4HRS PRN 08/08/21 17:30 08/09/21 17:29 DC Acetaminophen/ Hydrocodone Bitart (Lortab 5/325) 1 tab PRN Q6HRS PRN 08/09/21 09:00 Allopurinol (Zyloprim) 300 mg DAILY 08/09/21 09:00 08/10/21 08:44 Aspirin (Aspirin Chewable) 81 mg DAILY 08/09/21 09:00 08/10/21 08:44 Bumetanide (Bumex) 1 mg BID92 08/09/21 09:00 08/10/21 13:49 Calcium Carbonate/ Glycine (Tums) 500 mg PRN AFTMEALHC PRN 08/09/21 21:45 08/10/21 11:35 Cefepime HCl (Maxipime) 2 gm Q12HR 08/10/21 21:00 Clopidogrel Bisulfate (Plavix) 75 mg DAILY 08/09/21 09:00 08/10/21 08:45 Fentanyl Citrate (Fentanyl 2ml Vial) 50 mcg PRN Q2HR PRN 08/08/21 17:30 08/09/21 17:29 DC 08/09/21 08:54 Insulin Glargine (Lantus Syringe) 10 unit QHS 08/09/21 21:00 Insulin Human Lispro (HumaLOG) 6 units 1X ONCE 08/08/21 22:00 08/08/21 22:01 DC 08/08/21 22:27 Lactobacillus Rhamnosus (Culturelle) 1 cap BID 08/09/21 21:00 08/10/21 08:44 Levofloxacin/ Dextrose 100 ml @ 100 mls/hr Q24H 08/08/21 19:00 08/10/21 08:49 DC 08/09/21 20:33 Magnesium Oxide (Magnesium Oxide) 400 mg QHS 08/09/21 21:00 08/09/21 20:28 Metronidazole 100 ml @ 100 mls/hr Q8HRS 08/10/21 14:00 08/10/21 13:49 Micafungin Sodium 100 mg/Dextrose 100 ml @ 100 mls/hr Q24H 08/09/21 10:00 08/10/21 11:35 Ondansetron HCl (Zofran) 4 mg PRN Q6HRS PRN 08/09/21 21:45 08/10/21 11:35 Oxycodone/ Acetaminophen (Percocet ) 1 tab PRN Q4HRS PRN 08/08/21 18:30 08/10/21 13:49 Pantoprazole Sodium (Protonix) 40 mg BIDAC 08/09/21 09:00 08/10/21 08:45 Potassium Chloride (Klor-Con) 20 meq DAILYWBKFT 08/09/21 10:00 08/10/21 08:45 Sertraline HCl (Zoloft) 50 mg DAILY 08/09/21 17:30 08/10/21 08:45 Current Medications Medications (Trade) Dose Ordered Sig/Henrietta Route PRN Reason Start Time Stop Time Status Last Admin Dose Admin Magnesium Oxide (Magnesium Oxide) 400 mg QHS PO 08/09/21 21:00 08/09/21 20:28 Lactobacillus Rhamnosus (Culturelle) 1 cap BID PO 08/09/21 21:00 08/10/21 08:44 Sertraline HCl (Zoloft) 50 mg DAILY PO 08/09/21 17:30 08/10/21 08:45 Ondansetron HCl (Zofran) 4 mg PRN Q6HRS PRN IVP NAUSEA/VOMITING 1ST CHOICE 08/09/21 21:45 08/10/21 11:35 Calcium Carbonate/ Glycine (Tums) 500 mg PRN AFTMEALHC PRN PO INDIGESTION 08/09/21 21:45 08/10/21 11:35 Metronidazole 100 ml @ 100 mls/hr Q8HRS IV 08/10/21 14:00 08/10/21 13:49 Cefepime HCl (Maxipime) 1 gm 1X ONCE IVP 08/10/21 09:00 08/10/21 09:01 DC 08/10/21 11:35 LAB Lab: Laboratory Tests Test 08/09/21 15:25 08/09/21 20:51 08/10/21 00:07 08/10/21 06:55 Glucose (Fingerstick) 205 mg/dL (70-99) H 184 mg/dL (70-99) H 137 mg/dL (70-99) H White Blood Count 4.1 x10^3/uL (4.0-11.0) Red Blood Count 3.41 x10^6/uL (3.50-5.40) L Hemoglobin 9.8 g/dL (12.0-15.5) L Hematocrit 32.2 % (36.0-47.0) L Mean Corpuscular Volume 95 fL (79-100) Mean Corpuscular Hemoglobin 29 pg (25-35) Mean Corpuscular Hemoglobin Concent 30 g/dL (31-37) L Red Cell Distribution Width 19.8 % (11.5-14.5) H Platelet Count 218 x10^3/uL (140-400) Neutrophils (%) (Auto) 77 % (31-73) H Lymphocytes (%) (Auto) 12 % (24-48) L Monocytes (%) (Auto) 7 % (0-9) Eosinophils (%) (Auto) 3 % (0-3) Basophils (%) (Auto) 1 % (0-3) Neutrophils # (Auto) 3.2 x10^3/uL (1.8-7.7) Lymphocytes # (Auto) 0.5 x10^3/uL (1.0-4.8) L Monocytes # (Auto) 0.3 x10^3/uL (0.0-1.1) Eosinophils # (Auto) 0.1 x10^3/uL (0.0-0.7) Basophils # (Auto) 0.0 x10^3/uL (0.0-0.2) Sodium Level 134 mmol/L (136-145) L Potassium Level 4.4 mmol/L (3.5-5.1) Chloride Level 101 mmol/L (98-107) Carbon Dioxide Level 24 mmol/L (21-32) Anion Gap 9 (6-14) Blood Urea Nitrogen 50 mg/dL (7-20) H Creatinine 1.6 mg/dL (0.6-1.0) H Estimated GFR (Cockcroft-Gault) 32.8 BUN/Creatinine Ratio 31 (6-20) H Glucose Level 145 mg/dL (70-99) H Calcium Level 8.0 mg/dL (8.5-10.1) L Total Bilirubin 0.5 mg/dL (0.2-1.0) Aspartate Amino Transferase (AST) 27 U/L (15-37) Alanine Aminotransferase (ALT) 26 U/L (14-59) Alkaline Phosphatase 91 U/L (46-116) Total Protein 5.9 g/dL (6.4-8.2) L Albumin 1.7 g/dL (3.4-5.0) L Albumin/Globulin Ratio 0.4 (1.0-1.7) L Test 08/10/21 08:04 Glucose (Fingerstick) 145 mg/dL (70-99) H Laboratory Tests 08/10/21 06:55 Laboratory Tests 08/10/21 06:55 ASSESSMENT & PLAN A&P Plan as noted above This note was created using [employer] and may have omissions and/or errors due to the nature of real-time voice senior director. Justifications for Admission Other Justification LINWOOD BEGUM MD Aug 10, 2021 14:56
[2021-08-10 15:00] VITALS: BP 170/51
[2021-08-10 19:00] VITALS: BP 113/45
[2021-08-10] MEDS: MAGNESIUM OXIDE 400 MG TABLET PO SCH (20:58)
[2021-08-10] MEDS ORDERED: CEFEPIME HCL IV Push 2 GM VIAL. IVP SCH (21:00)
[2021-08-10] MEDS: INSULIN GLARGINE SYRINGE. SQ SCH (21:00)
[2021-08-10 23:00] VITALS: BP 113/50
[2021-08-11] MEDS: oxyCODONE/APAP 10/325 1 TAB TABLET PO PRN ×5 (02:09→20:22)
[2021-08-11 03:00] VITALS: BP 152/73
[2021-08-11 03:17] LABS: HEMOGLOBIN A1C 6.5 % (4.8-5.6)
[2021-08-11 06:38] LABS: CALCIUM 8.2 mg/dL (8.5-10.1); CREATININE 1.7 mg/dL (0.6-1.0); GFR 30.6; POTASSIUM 4.7 mmol/L (3.5-5.1)
[2021-08-11 07:10] LABS: BASO # 0.1 x10^3/uL (0.0-0.2); BASO % 1 % (0-3); EOS % 1 % (0-3); HEMATOCRIT 29.8 % (36.0-47.0); HEMOGLOBIN 9.3 g/dL (12.0-15.5); LYMPH # 0.5 x10^3/uL (1.0-4.8); LYMPH % 12 % (24-48); MEAN CORPUSCULAR HEMOGLOBIN 29 pg (25-35); MEAN CORPUSCULAR HGB CONC 31 g/dL (31-37); MEAN CORPUSCULAR VOLUME 92 fL (79-100); MONO # 0.3 x10^3/uL (0.0-1.1); MONO % 7 % (0-9); NEUT # 3.1 x10^3/uL (1.8-7.7); NEUT % 79 % (31-73); PLATELET COUNT 204 x10^3/uL (140-400); RED BLOOD COUNT 3.24 x10^6/uL (3.50-5.40); RED CELL DISTRIBUTION WIDTH 19.7 % (11.5-14.5)
[2021-08-11] MEDS: PANTOPRAZOLE 40 MG TABLET.DR. PO SCH ×2 (07:30→16:30)
[2021-08-11 08:00] VITALS: BP 137/44
--- NOTE | 2021-08-11 08:06 | PDOC ---
Infectious Disease Note Subjective Subjective pt says she is doing ok Legs are improving No fever, nausea, vomiting, diarrhea ROS ROS no fever or chills or sob Vital Sign Vital Signs Vital Signs Date Time Temp Pulse Resp B/P (MAP) Pulse Ox O2 Delivery O2 Flow Rate FiO2 08/11/21 07:22 92 Room Air 08/11/21 03:00 98.1 106 20 152/73 (99) 98.1 Physical Exam PHYSICAL EXAM GENERAL: Alert and oriented x 3 female, in no acute distress, appears depressed. HEENT: Normocephalic, atraumatic. NECK: Supple, no JVD. LUNGS: Clear. HEART: S1, S2. ABDOMEN: Soft, obese. Bowel sounds present. EXTREMITIES: Chronic lymphedema with cobblestone changes, chronic. Some draining wounds. Mild cellulitis. Per patient it is appearing there is some fecal debris in the legs. NEUROLOGIC: Alert, awake, somewhat weak, depressed. PSYCHIATRIC: Depressed. DERMATOLOGIC: Warm, dry, no generalized rash except for above. Labs Lab Laboratory Tests Test 08/10/21 08:04 08/10/21 17:13 08/10/21 20:22 08/10/21 23:15 Glucose (Fingerstick) 145 mg/dL (70-99) 232 mg/dL (70-99) 219 mg/dL (70-99) 200 mg/dL (70-99) Test 08/11/21 06:00 08/11/21 06:23 White Blood Count 4.0 x10^3/uL (4.0-11.0) Red Blood Count 3.24 x10^6/uL (3.50-5.40) Hemoglobin 9.3 g/dL (12.0-15.5) Hematocrit 29.8 % (36.0-47.0) Mean Corpuscular Volume 92 fL (79-100) Mean Corpuscular Hemoglobin 29 pg (25-35) Mean Corpuscular Hemoglobin Concent 31 g/dL (31-37) Red Cell Distribution Width 19.7 % (11.5-14.5) Platelet Count 204 x10^3/uL (140-400) Neutrophils (%) (Auto) 79 % (31-73) Lymphocytes (%) (Auto) 12 % (24-48) Monocytes (%) (Auto) 7 % (0-9) Eosinophils (%) (Auto) 1 % (0-3) Basophils (%) (Auto) 1 % (0-3) Neutrophils # (Auto) 3.1 x10^3/uL (1.8-7.7) Lymphocytes # (Auto) 0.5 x10^3/uL (1.0-4.8) Monocytes # (Auto) 0.3 x10^3/uL (0.0-1.1) Eosinophils # (Auto) 0.0 x10^3/uL (0.0-0.7) Basophils # (Auto) 0.1 x10^3/uL (0.0-0.2) Sodium Level 132 mmol/L (136-145) Potassium Level 4.7 mmol/L (3.5-5.1) Chloride Level 100 mmol/L (98-107) Carbon Dioxide Level 26 mmol/L (21-32) Anion Gap 6 (6-14) Blood Urea Nitrogen 50 mg/dL (7-20) Creatinine 1.7 mg/dL (0.6-1.0) Estimated GFR (Cockcroft-Gault) 30.6 Glucose Level 185 mg/dL (70-99) Calcium Level 8.2 mg/dL (8.5-10.1) Glucose (Fingerstick) 188 mg/dL (70-99) Objective Assessment IMPRESSION: 1. Chronic lymphedema with superimposed cellulitis, improving per patient report as per her treatment with IV vancomycin by Dr. Woodard. PICC line has been removed. 2. Acute kidney injury. 3. Recurrent fall. 4. Depression and anxiety. 5. Chronic pain, narcotic dependence. 6. HISTORY OF ALLERGIES TO PENICILLIN, CEPHALEXIN, TETRACYCLINE, CIPROFLOXACIN, AND ERYTHROMYCIN BASE. 7. Poor hygiene Plan Plan of Care change antibiotics to po Discussed with pharmacy monitor closely Local care. Maintain hygiene. Elevate lower extremity. Patient will need lymphedema care. Discussed with at bedside. ok to d/c to [facility] RIKKI BAKER MD Aug 11, 2021 08:06
[2021-08-11] MEDS: POTASSIUM CHLORIDE 20 MEQ TABLET.ER. PO SCH (08:15)
[2021-08-11] MEDS: ALLOPURINOL 300 MG TABLET. PO SCH (08:15)
[2021-08-11] MEDS: CLOPIDOGREL BISULFATE 75 MG TABLET PO SCH (08:15)
[2021-08-11] MEDS: LACTOBACILLUS RHAMNOSUS GG 1 CAPSULE. PO SCH ×2 (08:16→21:06)
[2021-08-11] MEDS: BUMETANIDE 1 MG TABLET. PO SCH ×2 (08:16→15:12)
[2021-08-11] MEDS: SERTRALINE 50 MG TABLET. PO SCH (08:16)
[2021-08-11] MEDS: CALCIUM CARBONATE 500 MG TAB.CHEW PO PRN (08:28)
[2021-08-11] MEDS: CEFDINIR 300 MG CAPSULE PO SCH ×2 (08:28→21:06)
[2021-08-11] MEDS: ONDANSETRON PF 4 MG/2 ML VIAL. IVP PRN (08:28)
[2021-08-11] MEDS: MICAFUNGIN 100 MG in IV DEXTROSE 5% 100ML 100 ML IV SCH (08:29)
[2021-08-11] MEDS ORDERED: FLUCONAZOLE 100 MG TABLET. PO SCH (09:00)
[2021-08-11] MEDS: ASPIRIN CHEWABLE 81 MG TABLET. PO SCH (09:00)
[2021-08-11] MEDS: INSULIN LISPRO 300 UNITS/3 ML VIAL. SQ SCH ×3 (09:59→16:51)
[2021-08-11 11:00] VITALS: BP 145/67
--- NOTE | 2021-08-11 12:24 | PDOC ---
[employer] PROGRESS NOTE Date of Service DOS: DATE: 08/11/21 TIME: 12:21 Chief Complaint Chief Complaint 1. Chronic lymphedema with superimposed cellulitis, 2. Acute kidney injury. 3. Recurrent fall. 4. Depression and anxiety. 5. Chronic pain, narcotic dependence. 6. HISTORY OF ALLERGIES TO PENICILLIN, CEPHALEXIN, TETRACYCLINE, CIPROFLOXACIN, AND ERYTHROMYCIN BASE. Plan: Plan of Care Change antibiotics to Flagyl cefepime, micafungin Discussed with pharmacy monitor closely Local care. Maintain hygiene. Elevate lower extremity. Patient will need lymphedema care. Discussed with at bedside. History of Present Illness History of Present Illness improving per patient report as per her treatment with IV vancomycin by Dr. Woodard she is very anxious, has pain, is very worried about transfer to Rehab, had concerns when prior family membersw have gone, her was here, and wanted to discuss COVID, he is unvaccinated, does not trust ingredients, but champions IVERMECTIN and wanted me to review the literature from [place] and [place], and I had to explain to him that isnt the literature we ever follow here Vitals/I&O Vitals/I&O: Vital Signs Date Time Temp Pulse Resp B/P (MAP) Pulse Ox O2 Delivery O2 Flow Rate FiO2 08/11/21 11:56 94 Room Air 08/11/21 08:00 98.1 95 20 137/44 (75) 98.1 I & O 08/10/21 08/10/21 08/11/21 15:00 23:00 07:00 Intake Total 520 ml 920 ml 480 ml Output Total 500 ml Balance 520 ml 920 ml -20 ml Physical Exam Physical Exam: GENERAL: Alert and oriented x 3 female, in no acute distress, appears depressed. HEENT: Normocephalic, atraumatic. NECK: Supple, no JVD. LUNGS: Clear. HEART: S1, S2. ABDOMEN: Soft, obese. Bowel sounds present. EXTREMITIES: Chronic lymphedema with cobblestone changes, chronic. Some draining wounds. Mild cellulitis. Per patient it is appearing there is some fecal debris in the legs. NEUROLOGIC: Alert, awake, somewhat weak, depressed. PSYCHIATRIC: Depressed. DERMATOLOGIC: Warm, dry, no generalized rash except for above. General: Alert, Cooperative, mild distress, moderate distress Heart: Normal S2 Lungs: Wheezing Extremities: No cyanosis Skin: Other (rash, lymphedema with pustules) Labs Labs: Laboratory Tests Test 08/10/21 17:13 08/10/21 20:22 08/10/21 23:15 08/11/21 06:00 Glucose (Fingerstick) 232 mg/dL (70-99) 219 mg/dL (70-99) 200 mg/dL (70-99) White Blood Count 4.0 x10^3/uL (4.0-11.0) Red Blood Count 3.24 x10^6/uL (3.50-5.40) Hemoglobin 9.3 g/dL (12.0-15.5) Hematocrit 29.8 % (36.0-47.0) Mean Corpuscular Volume 92 fL (79-100) Mean Corpuscular Hemoglobin 29 pg (25-35) Mean Corpuscular Hemoglobin Concent 31 g/dL (31-37) Red Cell Distribution Width 19.7 % (11.5-14.5) Platelet Count 204 x10^3/uL (140-400) Neutrophils (%) (Auto) 79 % (31-73) Lymphocytes (%) (Auto) 12 % (24-48) Monocytes (%) (Auto) 7 % (0-9) Eosinophils (%) (Auto) 1 % (0-3) Basophils (%) (Auto) 1 % (0-3) Neutrophils # (Auto) 3.1 x10^3/uL (1.8-7.7) Lymphocytes # (Auto) 0.5 x10^3/uL (1.0-4.8) Monocytes # (Auto) 0.3 x10^3/uL (0.0-1.1) Eosinophils # (Auto) 0.0 x10^3/uL (0.0-0.7) Basophils # (Auto) 0.1 x10^3/uL (0.0-0.2) Sodium Level 132 mmol/L (136-145) Potassium Level 4.7 mmol/L (3.5-5.1) Chloride Level 100 mmol/L (98-107) Carbon Dioxide Level 26 mmol/L (21-32) Anion Gap 6 (6-14) Blood Urea Nitrogen 50 mg/dL (7-20) Creatinine 1.7 mg/dL (0.6-1.0) Estimated GFR (Cockcroft-Gault) 30.6 Glucose Level 185 mg/dL (70-99) Calcium Level 8.2 mg/dL (8.5-10.1) Test 08/11/21 06:23 08/11/21 08:09 08/11/21 11:48 Glucose (Fingerstick) 188 mg/dL (70-99) 182 mg/dL (70-99) 244 mg/dL (70-99) Review of Systems Review of Systems: anxiety, pain restlesness Assessment and Plan Assessmemt and Plan Problems Medical Problems: (1) Failure to thrive in adult Status: Acute (2) Falls frequently Status: Acute Comment Review of Relevant I have reviewed the following items jovana (where applicable) has been applied. Medications: Current Medications Medications (Trade) Dose Ordered Sig/Henrietta Route PRN Reason Start Time Stop Time Status Last Admin Dose Admin Metronidazole 100 ml @ 100 mls/hr Q8HRS IV 08/10/21 14:00 08/11/21 08:08 DC 08/11/21 06:25 Cefepime HCl (Maxipime) 2 gm Q12HR IVP 08/10/21 21:00 08/11/21 08:08 DC 08/10/21 20:59 Cefdinir (Omnicef) 300 mg BID PO 08/11/21 09:00 08/11/21 08:28 Justifications for Admission Other Justification JOHN SANCHEZ MD Aug 11, 2021 12:24
[2021-08-11 15:00] VITALS: BP 133/67
--- NOTE | 2021-08-11 16:28 | NUR ---
SW following. Discussed with RN, pt from home with , room air, regular diet. Has had [facility] in the past. Therapy recommending SNF - SW to meet with pt to discuss SNF. SW requested COVID swab for potential placement. SW will continue to follow.
--- NOTE | 2021-08-11 16:53 | NUR ---
Wound/Ostomy Care Wound Type/Assessment: Patient seen per wound care consult. See wound assessment. Patient has bilateral lower leg lymphedema and yeast/intertrigo to multiple areas to her folds/pannus/groins. Bilateral lower legs cleansed with mild soap and water and wash cloths, legs dried and moisturized using lotion. We will order ammonium lactate for future use. Patient had recent fall and has multiple areas of bruising. Treatment Recommendations/Plan: Recommendations for ammonium lactate to bilateral lower legs and posterior thighs. Nystatin powder to bilateral groins, pannus, and multiple folds. Nystatin and ammonium lactate ordered. Education provided: Patient educated on dressing changes and PU prevention. Offloading surface/device: Patient refused a bariatric bed, bilateral lower heels floated. Recommended Referrals/Tests: N/A Discharge Recommendations for dressings: Bed lowered and call light in reach. Spoke with RN regarding POC. Harix changed for this patient. Wound care will follow up for reassessment on 08/19/21.
[2021-08-11 19:00] VITALS: BP 117/63
[2021-08-11] MEDS: INSULIN GLARGINE SYRINGE. SQ SCH (21:00)
--- NOTE | 2021-08-11 21:00 | NUR ---
Patient refused Lantus insulin.
[2021-08-11] MEDS: MAGNESIUM OXIDE 400 MG TABLET PO SCH (21:06)
[2021-08-11] MEDS: NYSTATIN TOPICAL POWDER 15GM BOTTLE. TP SCH (21:06)
[2021-08-11] MEDS: AMMONIUM LACTATE 12% TOPICAL LOTION 225GM BOTTLE. TP SCH (21:06)
[2021-08-11 23:00] VITALS: BP 116/60
[2021-08-12] MEDS: oxyCODONE/APAP 10/325 1 TAB TABLET PO PRN ×5 (01:41→21:33)
[2021-08-12 03:00] VITALS: BP 107/54
[2021-08-12 04:48] LABS: BASO % 1 % (0-3); EOS # 0.1 x10^3/uL (0.0-0.7); EOS % 3 % (0-3); HEMATOCRIT 30.4 % (36.0-47.0); HEMOGLOBIN 9.7 g/dL (12.0-15.5); LYMPH # 0.4 x10^3/uL (1.0-4.8); LYMPH % 12 % (24-48); MEAN CORPUSCULAR HEMOGLOBIN 29 pg (25-35); MEAN CORPUSCULAR HGB CONC 32 g/dL (31-37); MEAN CORPUSCULAR VOLUME 92 fL (79-100); MONO # 0.2 x10^3/uL (0.0-1.1); MONO % 6 % (0-9); NEUT # 2.9 x10^3/uL (1.8-7.7); NEUT % 77 % (31-73); PLATELET COUNT 228 x10^3/uL (140-400); RED BLOOD COUNT 3.31 x10^6/uL (3.50-5.40); RED CELL DISTRIBUTION WIDTH 20.2 % (11.5-14.5); WHITE BLOOD COUNT 3.7 x10^3/uL (4.0-11.0)
[2021-08-12 04:58] LABS: CALCIUM 7.9 mg/dL (8.5-10.1); CREATININE 1.6 mg/dL (0.6-1.0); GFR 32.8; POTASSIUM 4.3 mmol/L (3.5-5.1)
[2021-08-12 07:01] LABS: ANISOCYTOSIS PRESENT; PLT ESTIMATE ADEQUATE (ADEQUATE); POLYCHROMASIA PRESENT
[2021-08-12] MEDS: INSULIN LISPRO 300 UNITS/3 ML VIAL. SQ SCH ×3 (07:30→17:14)
[2021-08-12 07:36] VITALS: BP 156/72
--- NOTE | 2021-08-12 08:44 | PDOC ---
Infectious Disease Note Subjective Subjective pt says she is doing ok Legs are improving No fever, nausea, vomiting, diarrhea Vital Sign Vital Signs Vital Signs Date Time Temp Pulse Resp B/P (MAP) Pulse Ox O2 Delivery O2 Flow Rate FiO2 08/12/21 07:50 Room Air 08/12/21 07:36 98.0 95 18 156/72 (100) 95 98.0 Physical Exam PHYSICAL EXAM GENERAL: Alert and oriented x 3 female, in no acute distress, appears depressed. HEENT: Normocephalic, atraumatic. NECK: Supple, no JVD. LUNGS: Clear. HEART: S1, S2. ABDOMEN: Soft, obese. Bowel sounds present. EXTREMITIES: Chronic lymphedema with cobblestone changes, chronic. Some draining wounds. Mild cellulitis. Per patient it is appearing there is some fecal debris in the legs. NEUROLOGIC: Alert, awake, somewhat weak, depressed. PSYCHIATRIC: Depressed. DERMATOLOGIC: Warm, dry, no generalized rash except for above. Labs Lab Laboratory Tests Test 08/11/21 11:48 08/11/21 15:21 08/11/21 16:00 08/11/21 20:49 Glucose (Fingerstick) 244 mg/dL (70-99) 206 mg/dL (70-99) 182 mg/dL (70-99) SARS-CoV-2 Antigen (Rapid) Negative (NEGATIVE) Test 08/12/21 03:02 08/12/21 04:15 08/12/21 07:26 Glucose (Fingerstick) 128 mg/dL (70-99) 153 mg/dL (70-99) White Blood Count 3.7 x10^3/uL (4.0-11.0) Red Blood Count 3.31 x10^6/uL (3.50-5.40) Hemoglobin 9.7 g/dL (12.0-15.5) Hematocrit 30.4 % (36.0-47.0) Mean Corpuscular Volume 92 fL (79-100) Mean Corpuscular Hemoglobin 29 pg (25-35) Mean Corpuscular Hemoglobin Concent 32 g/dL (31-37) Red Cell Distribution Width 20.2 % (11.5-14.5) Platelet Count 228 x10^3/uL (140-400) Neutrophils (%) (Auto) 77 % (31-73) Lymphocytes (%) (Auto) 12 % (24-48) Monocytes (%) (Auto) 6 % (0-9) Eosinophils (%) (Auto) 3 % (0-3) Basophils (%) (Auto) 1 % (0-3) Neutrophils # (Auto) 2.9 x10^3/uL (1.8-7.7) Lymphocytes # (Auto) 0.4 x10^3/uL (1.0-4.8) Monocytes # (Auto) 0.2 x10^3/uL (0.0-1.1) Eosinophils # (Auto) 0.1 x10^3/uL (0.0-0.7) Basophils # (Auto) 0.0 x10^3/uL (0.0-0.2) Platelet Estimate Adequate (ADEQUATE) Polychromasia Present Anisocytosis Present Sodium Level 133 mmol/L (136-145) Potassium Level 4.3 mmol/L (3.5-5.1) Chloride Level 100 mmol/L (98-107) Carbon Dioxide Level 29 mmol/L (21-32) Anion Gap 4 (6-14) Blood Urea Nitrogen 48 mg/dL (7-20) Creatinine 1.6 mg/dL (0.6-1.0) Estimated GFR (Cockcroft-Gault) 32.8 Glucose Level 155 mg/dL (70-99) Calcium Level 7.9 mg/dL (8.5-10.1) Objective Assessment IMPRESSION: 1. Chronic lymphedema with superimposed cellulitis, improving per patient report as per her treatment with IV vancomycin by Dr. Woodard. PICC line has been removed. 2. Acute kidney injury. 3. Recurrent fall. 4. Depression and anxiety. 5. Chronic pain, narcotic dependence. 6. HISTORY OF ALLERGIES TO PENICILLIN, CEPHALEXIN, TETRACYCLINE, CIPROFLOXACIN, AND ERYTHROMYCIN BASE. 7. Poor hygiene Plan Plan of Care antibiotics po Discussed with pharmacy monitor closely Local care. Maintain hygiene. Elevate lower extremity. Patient will need lymphedema care. Discussed with at bedside. ok to d/c to [facility] RIKKI BAKER MD Aug 12, 2021 08:44
[2021-08-12] MEDS: AMMONIUM LACTATE 12% TOPICAL LOTION 225GM BOTTLE. TP SCH ×2 (08:55→21:35)
[2021-08-12] MEDS: CLOPIDOGREL BISULFATE 75 MG TABLET PO SCH (08:55)
[2021-08-12] MEDS: PANTOPRAZOLE 40 MG TABLET.DR. PO SCH ×2 (08:55→17:11)
[2021-08-12] MEDS: LACTOBACILLUS RHAMNOSUS GG 1 CAPSULE. PO SCH ×2 (08:55→21:31)
[2021-08-12] MEDS: NYSTATIN TOPICAL POWDER 15GM BOTTLE. TP SCH ×2 (08:55→21:34)
[2021-08-12] MEDS: ALLOPURINOL 300 MG TABLET. PO SCH (08:56)
[2021-08-12] MEDS: POTASSIUM CHLORIDE 20 MEQ TABLET.ER. PO SCH (08:56)
[2021-08-12] MEDS: CEFDINIR 300 MG CAPSULE PO SCH ×2 (08:56→21:31)
[2021-08-12] MEDS: SERTRALINE 50 MG TABLET. PO SCH (08:56)
[2021-08-12] MEDS: BUMETANIDE 1 MG TABLET. PO SCH ×2 (08:56→11:55)
[2021-08-12] MEDS: ASPIRIN CHEWABLE 81 MG TABLET. PO SCH (08:56)
[2021-08-12] MEDS: MICAFUNGIN 100 MG in IV DEXTROSE 5% 100ML 100 ML IV SCH (08:59)
[2021-08-12 11:14] VITALS: BP 112/83
--- NOTE | 2021-08-12 14:24 | PDOC ---
[employer] PROGRESS NOTE Date of Service DOS: DATE: 08/12/21 TIME: 14:23 Chief Complaint Chief Complaint 1. Chronic lymphedema with superimposed cellulitis, 2. Acute kidney injury. 3. Recurrent fall. 4. Depression and anxiety. 5. Chronic pain, narcotic dependence. 6. HISTORY OF ALLERGIES TO PENICILLIN, CEPHALEXIN, TETRACYCLINE, CIPROFLOXACIN, AND ERYTHROMYCIN BASE. History of Present Illness History of Present Illness improving per patient report as per her treatment with IV vancomycin by Dr. Woodard she is very anxious, has pain, is very worried about transfer to Rehab, had concerns when prior family membersw have gone, her was here, and wanted to discuss COVID, he is unvaccinated, does not trust ingredients, but champions IVERMECTIN and wanted me to review the literature from [facility] and [place], and I had to explain to him that isnt the literature we ever follow here Vitals/I&O Vitals/I&O: Vital Signs Date Time Temp Pulse Resp B/P (MAP) Pulse Ox O2 Delivery O2 Flow Rate FiO2 08/12/21 11:14 98.3 105 20 112/83 (93) 94 Room Air 98.3 I & O 08/11/21 08/11/21 08/12/21 15:00 23:00 07:00 Intake Total 480 ml Output Total 1300 ml 300 ml 1150 ml Balance -1300 ml 180 ml -1150 ml Physical Exam Physical Exam: GENERAL: Alert and oriented x 3 female, in no acute distress, appears depressed. HEENT: Normocephalic, atraumatic. NECK: Supple, no JVD. LUNGS: Clear. HEART: S1, S2. ABDOMEN: Soft, obese. Bowel sounds present. EXTREMITIES: Chronic lymphedema with cobblestone changes, chronic. Some draining wounds. Mild cellulitis. Per patient it is appearing there is some fecal debris in the legs. NEUROLOGIC: Alert, awake, somewhat weak, depressed. PSYCHIATRIC: Depressed. DERMATOLOGIC: Warm, dry, no generalized rash except for above. General: Alert, Cooperative, mild distress, moderate distress Heart: Normal S2 Lungs: Wheezing Extremities: No cyanosis Skin: Other (rash, lymphedema with pustules) Labs Labs: Laboratory Tests Test 08/11/21 15:21 08/11/21 16:00 08/11/21 20:49 08/12/21 03:02 Glucose (Fingerstick) 206 mg/dL (70-99) 182 mg/dL (70-99) 128 mg/dL (70-99) SARS-CoV-2 RNA (HIEN) Negative (Negative) SARS-CoV-2 Antigen (Rapid) Negative (NEGATIVE) Test 08/12/21 04:15 08/12/21 07:26 08/12/21 10:39 White Blood Count 3.7 x10^3/uL (4.0-11.0) Red Blood Count 3.31 x10^6/uL (3.50-5.40) Hemoglobin 9.7 g/dL (12.0-15.5) Hematocrit 30.4 % (36.0-47.0) Mean Corpuscular Volume 92 fL (79-100) Mean Corpuscular Hemoglobin 29 pg (25-35) Mean Corpuscular Hemoglobin Concent 32 g/dL (31-37) Red Cell Distribution Width 20.2 % (11.5-14.5) Platelet Count 228 x10^3/uL (140-400) Neutrophils (%) (Auto) 77 % (31-73) Lymphocytes (%) (Auto) 12 % (24-48) Monocytes (%) (Auto) 6 % (0-9) Eosinophils (%) (Auto) 3 % (0-3) Basophils (%) (Auto) 1 % (0-3) Neutrophils # (Auto) 2.9 x10^3/uL (1.8-7.7) Lymphocytes # (Auto) 0.4 x10^3/uL (1.0-4.8) Monocytes # (Auto) 0.2 x10^3/uL (0.0-1.1) Eosinophils # (Auto) 0.1 x10^3/uL (0.0-0.7) Basophils # (Auto) 0.0 x10^3/uL (0.0-0.2) Platelet Estimate Adequate (ADEQUATE) Polychromasia Present Anisocytosis Present Sodium Level 133 mmol/L (136-145) Potassium Level 4.3 mmol/L (3.5-5.1) Chloride Level 100 mmol/L (98-107) Carbon Dioxide Level 29 mmol/L (21-32) Anion Gap 4 (6-14) Blood Urea Nitrogen 48 mg/dL (7-20) Creatinine 1.6 mg/dL (0.6-1.0) Estimated GFR (Cockcroft-Gault) 32.8 Glucose Level 155 mg/dL (70-99) Calcium Level 7.9 mg/dL (8.5-10.1) Glucose (Fingerstick) 153 mg/dL (70-99) 160 mg/dL (70-99) Review of Systems Review of Systems: has more pith today, less emotional, still in pain, she reports to me that she moves some and does PT homework on her own, the nurses do not support this, and report she is full support for transfer Assessment and Plan Assessmemt and Plan Problems Medical Problems: (1) Failure to thrive in adult Status: Acute (2) Falls frequently Status: Acute Comment Review of Relevant I have reviewed the following items jovana (where applicable) has been applied. Medications: Current Medications Medications (Trade) Dose Ordered Sig/Henrietta Route PRN Reason Start Time Stop Time Status Last Admin Dose Admin Lactic Acid (Lac-Hydrin) 1 [place] BID TP 08/11/21 21:00 08/12/21 08:55 Nystatin (Nystop) 1 [place] BID TP 08/11/21 21:00 08/12/21 08:55 Justifications for Admission Other Justification JOHN SANCHEZ MD Aug 12, 2021 14:24
[2021-08-12 15:10] VITALS: BP 133/43
[2021-08-12] MEDS: ONDANSETRON PF 4 MG/2 ML VIAL. IVP PRN ×2 (17:11→23:17)
[2021-08-12 19:00] VITALS: BP 124/66
[2021-08-12] MEDS: CALCIUM CARBONATE 500 MG TAB.CHEW PO PRN (20:17)
[2021-08-12] MEDS: INSULIN GLARGINE SYRINGE. SQ SCH (21:00)
[2021-08-12] MEDS: MAGNESIUM OXIDE 400 MG TABLET PO SCH (21:31)
[2021-08-12 23:00] VITALS: BP 140/60
[2021-08-13] MEDS: oxyCODONE/APAP 10/325 1 TAB TABLET PO PRN ×4 (02:23→16:06)
[2021-08-13 03:00] VITALS: BP 152/78
[2021-08-13 07:20] VITALS: BP 141/34
[2021-08-13] MEDS: INSULIN LISPRO 300 UNITS/3 ML VIAL. SQ SCH ×3 (07:30→21:17)
[2021-08-13] MEDS: ALLOPURINOL 300 MG TABLET. PO SCH (08:09)
[2021-08-13] MEDS: BUMETANIDE 1 MG TABLET. PO SCH ×2 (08:09→13:43)
[2021-08-13] MEDS: PANTOPRAZOLE 40 MG TABLET.DR. PO SCH ×2 (08:10→16:30)
[2021-08-13] MEDS: LACTOBACILLUS RHAMNOSUS GG 1 CAPSULE. PO SCH ×2 (08:10→20:28)
[2021-08-13] MEDS: SERTRALINE 50 MG TABLET. PO SCH (08:10)
[2021-08-13] MEDS: POTASSIUM CHLORIDE 20 MEQ TABLET.ER. PO SCH (08:10)
[2021-08-13] MEDS: CEFDINIR 300 MG CAPSULE PO SCH ×2 (08:10→20:27)
[2021-08-13] MEDS: ASPIRIN CHEWABLE 81 MG TABLET. PO SCH (08:10)
[2021-08-13] MEDS: CLOPIDOGREL BISULFATE 75 MG TABLET PO SCH (08:10)
[2021-08-13] MEDS: NYSTATIN TOPICAL POWDER 15GM BOTTLE. TP SCH ×2 (08:11→20:30)
[2021-08-13] MEDS: AMMONIUM LACTATE 12% TOPICAL LOTION 225GM BOTTLE. TP SCH ×2 (08:11→20:31)
[2021-08-13] MEDS: MICAFUNGIN 100 MG in IV DEXTROSE 5% 100ML 100 ML IV SCH (08:12)
[2021-08-13 08:59] LABS: BASO % 1 % (0-3); EOS # 0.2 x10^3/uL (0.0-0.7); EOS % 4 % (0-3); HEMATOCRIT 29.9 % (36.0-47.0); HEMOGLOBIN 9.5 g/dL (12.0-15.5); LYMPH # 0.5 x10^3/uL (1.0-4.8); LYMPH % 12 % (24-48); MEAN CORPUSCULAR HEMOGLOBIN 29 pg (25-35); MEAN CORPUSCULAR HGB CONC 32 g/dL (31-37); MEAN CORPUSCULAR VOLUME 92 fL (79-100); MONO # 0.3 x10^3/uL (0.0-1.1); MONO % 7 % (0-9); NEUT % 77 % (31-73); PLATELET COUNT 246 x10^3/uL (140-400); RED BLOOD COUNT 3.25 x10^6/uL (3.50-5.40); RED CELL DISTRIBUTION WIDTH 20.1 % (11.5-14.5)
[2021-08-13 09:13] LABS: CALCIUM 8.2 mg/dL (8.5-10.1); CREATININE 1.5 mg/dL (0.6-1.0); GFR 35.3; POTASSIUM 4.4 mmol/L (3.5-5.1)
--- NOTE | 2021-08-13 09:32 | PDOC ---
Infectious Disease Note Subjective Subjective pt says she is doing ok Legs are improving No fever, nausea, vomiting, diarrhea Vital Sign Vital Signs Vital Signs Date Time Temp Pulse Resp B/P (MAP) Pulse Ox O2 Delivery O2 Flow Rate FiO2 08/13/21 07:20 98.1 89 20 141/34 (69) 95 Room Air 98.1 Physical Exam PHYSICAL EXAM GENERAL: Alert and oriented x 3 female, in no acute distress, appears depressed. HEENT: Normocephalic, atraumatic. NECK: Supple, no JVD. LUNGS: Clear. HEART: S1, S2. ABDOMEN: Soft, obese. Bowel sounds present. EXTREMITIES: Chronic lymphedema with cobblestone changes, chronic. Some draining wounds. Mild cellulitis. Per patient it is appearing there is some fecal debris in the legs. NEUROLOGIC: Alert, awake, somewhat weak, depressed. PSYCHIATRIC: Depressed. DERMATOLOGIC: Warm, dry, no generalized rash except for above. Labs Lab Laboratory Tests Test 08/12/21 10:39 08/12/21 16:01 08/12/21 20:42 08/13/21 07:15 Glucose (Fingerstick) 160 mg/dL (70-99) 224 mg/dL (70-99) 207 mg/dL (70-99) White Blood Count 4.0 x10^3/uL (4.0-11.0) Red Blood Count 3.25 x10^6/uL (3.50-5.40) Hemoglobin 9.5 g/dL (12.0-15.5) Hematocrit 29.9 % (36.0-47.0) Mean Corpuscular Volume 92 fL (79-100) Mean Corpuscular Hemoglobin 29 pg (25-35) Mean Corpuscular Hemoglobin Concent 32 g/dL (31-37) Red Cell Distribution Width 20.1 % (11.5-14.5) Platelet Count 246 x10^3/uL (140-400) Neutrophils (%) (Auto) 77 % (31-73) Lymphocytes (%) (Auto) 12 % (24-48) Monocytes (%) (Auto) 7 % (0-9) Eosinophils (%) (Auto) 4 % (0-3) Basophils (%) (Auto) 1 % (0-3) Neutrophils # (Auto) 3.0 x10^3/uL (1.8-7.7) Lymphocytes # (Auto) 0.5 x10^3/uL (1.0-4.8) Monocytes # (Auto) 0.3 x10^3/uL (0.0-1.1) Eosinophils # (Auto) 0.2 x10^3/uL (0.0-0.7) Basophils # (Auto) 0.0 x10^3/uL (0.0-0.2) Sodium Level 134 mmol/L (136-145) Potassium Level 4.4 mmol/L (3.5-5.1) Chloride Level 100 mmol/L (98-107) Carbon Dioxide Level 28 mmol/L (21-32) Anion Gap 6 (6-14) Blood Urea Nitrogen 47 mg/dL (7-20) Creatinine 1.5 mg/dL (0.6-1.0) Estimated GFR (Cockcroft-Gault) 35.3 Glucose Level 142 mg/dL (70-99) Calcium Level 8.2 mg/dL (8.5-10.1) Test 08/13/21 07:34 Glucose (Fingerstick) 153 mg/dL (70-99) Objective Assessment IMPRESSION: 1. Chronic lymphedema with superimposed cellulitis, improving per patient report as per her treatment with IV vancomycin by Dr. Woodard. PICC line has been removed. 2. Acute kidney injury. 3. Recurrent fall. 4. Depression and anxiety. 5. Chronic pain, narcotic dependence. 6. HISTORY OF ALLERGIES TO PENICILLIN, CEPHALEXIN, TETRACYCLINE, CIPROFLOXACIN, AND ERYTHROMYCIN BASE. 7. Poor hygiene Plan Plan of Care antibiotics po Micafungin can be discontinued at discharge Discussed with pharmacy monitor closely Local care. Maintain hygiene. Elevate lower extremity. Patient will need lymphedema care. Discussed with at bedside. ok to d/c to [facility] RIKKI BAKER MD Aug 13, 2021 09:32
[2021-08-13 11:30] VITALS: BP 135/47
--- NOTE | 2021-08-13 15:04 | PDOC ---
[employer] PROGRESS NOTE Date of Service DOS: DATE: 08/13/21 TIME: 15:04 Chief Complaint Chief Complaint 1. Chronic lymphedema with superimposed cellulitis, 2. Acute kidney injury. 3. Recurrent fall. 4. Depression and anxiety. 5. Chronic pain, narcotic dependence. 6. HISTORY OF ALLERGIES TO PENICILLIN, CEPHALEXIN, TETRACYCLINE, CIPROFLOXACIN, AND ERYTHROMYCIN BASE. History of Present Illness History of Present Illness improving per patient report as per her treatment with IV vancomycin by Dr. Woodard she is very anxious, has pain, is very worried about transfer to Rehab, had concerns when prior family membersw have gone, her was here, and wanted to discuss COVID, he is unvaccinated, does not trust ingredients, but [facility] IVERMECTIN and wanted me to review the literature from [place] and [place], and I had to explain to him that isnt the literature we ever follow here Vitals/I&O Vitals/I&O: Vital Signs Date Time Temp Pulse Resp B/P (MAP) Pulse Ox O2 Delivery O2 Flow Rate FiO2 08/13/21 11:30 98.1 100 20 135/47 (76) 92 Room Air 98.1 I & O 08/12/21 08/12/21 08/13/21 15:00 23:00 07:00 Intake Total 520 ml 300 ml 0 ml Output Total 800 ml 300 ml Balance 520 ml -500 ml -300 ml Physical Exam Physical Exam: GENERAL: Alert and oriented x 3 female, in no acute distress, appears depressed. HEENT: Normocephalic, atraumatic. NECK: Supple, no JVD. LUNGS: Clear. HEART: S1, S2. ABDOMEN: Soft, obese. Bowel sounds present. EXTREMITIES: Chronic lymphedema with cobblestone changes, chronic. Some draining wounds. Mild cellulitis. Per patient it is appearing there is some fecal debris in the legs. NEUROLOGIC: Alert, awake, somewhat weak, depressed. PSYCHIATRIC: Depressed. DERMATOLOGIC: Warm, dry, no generalized rash except for above. General: Alert, Cooperative, mild distress, moderate distress Heart: Normal S2 Lungs: Wheezing Extremities: No cyanosis Skin: Other (rash, lymphedema with pustules) Labs Labs: Laboratory Tests Test 08/12/21 16:01 08/12/21 20:42 08/13/21 07:15 08/13/21 07:34 Glucose (Fingerstick) 224 mg/dL (70-99) 207 mg/dL (70-99) 153 mg/dL (70-99) White Blood Count 4.0 x10^3/uL (4.0-11.0) Red Blood Count 3.25 x10^6/uL (3.50-5.40) Hemoglobin 9.5 g/dL (12.0-15.5) Hematocrit 29.9 % (36.0-47.0) Mean Corpuscular Volume 92 fL (79-100) Mean Corpuscular Hemoglobin 29 pg (25-35) Mean Corpuscular Hemoglobin Concent 32 g/dL (31-37) Red Cell Distribution Width 20.1 % (11.5-14.5) Platelet Count 246 x10^3/uL (140-400) Neutrophils (%) (Auto) 77 % (31-73) Lymphocytes (%) (Auto) 12 % (24-48) Monocytes (%) (Auto) 7 % (0-9) Eosinophils (%) (Auto) 4 % (0-3) Basophils (%) (Auto) 1 % (0-3) Neutrophils # (Auto) 3.0 x10^3/uL (1.8-7.7) Lymphocytes # (Auto) 0.5 x10^3/uL (1.0-4.8) Monocytes # (Auto) 0.3 x10^3/uL (0.0-1.1) Eosinophils # (Auto) 0.2 x10^3/uL (0.0-0.7) Basophils # (Auto) 0.0 x10^3/uL (0.0-0.2) Sodium Level 134 mmol/L (136-145) Potassium Level 4.4 mmol/L (3.5-5.1) Chloride Level 100 mmol/L (98-107) Carbon Dioxide Level 28 mmol/L (21-32) Anion Gap 6 (6-14) Blood Urea Nitrogen 47 mg/dL (7-20) Creatinine 1.5 mg/dL (0.6-1.0) Estimated GFR (Cockcroft-Gault) 35.3 Glucose Level 142 mg/dL (70-99) Calcium Level 8.2 mg/dL (8.5-10.1) Assessment and Plan Assessmemt and Plan Problems Medical Problems: (1) Failure to thrive in adult Status: Acute (2) Falls frequently Status: Acute Comment Review of Relevant I have reviewed the following items jovana (where applicable) has been applied. Justifications for Admission Other Justification JOHN SANCHEZ MD Aug 13, 2021 15:04
[2021-08-13 15:14] VITALS: BP 149/74
--- NOTE | 2021-08-13 16:41 | NUR ---
Report given to MADHU Michel for continuous of care.
[2021-08-13 19:20] VITALS: BP 118/40
[2021-08-13] MEDS: HYDROcodone/APAP 5/325MG 1 TAB TABLET PO PRN (20:27)
[2021-08-13] MEDS: MAGNESIUM OXIDE 400 MG TABLET PO SCH (20:27)
[2021-08-13] MEDS: INSULIN GLARGINE SYRINGE. SQ SCH (21:00)
--- NOTE | 2021-08-13 21:47 | NUR ---
Novolog not given at 1630. BG at 2100 was 191, no sliding scale on MAR. 6 units due at 1630. Patient refused Lantus but agreed to 6 units Novolog at this time.
[2021-08-13 23:15] VITALS: BP 134/73
[2021-08-14] MEDS: oxyCODONE/APAP 10/325 1 TAB TABLET PO PRN ×5 (01:55→21:37)
[2021-08-14] MEDS: CALCIUM CARBONATE 500 MG TAB.CHEW PO PRN (01:58)
[2021-08-14 03:08] VITALS: BP 170/47
[2021-08-14] MEDS: HYDROcodone/APAP 5/325MG 1 TAB TABLET PO PRN (06:12)
[2021-08-14 07:00] VITALS: BP 149/57
--- NOTE | 2021-08-14 07:34 | PDOC ---
Infectious Disease Note Subjective Subjective pt says she is doing ok Legs are improving No fever, nausea, vomiting, diarrhea ROS ANNA Denies chest pain shortness of breath Vital Sign Vital Signs Vital Signs Date Time Temp Pulse Resp B/P (MAP) Pulse Ox O2 Delivery O2 Flow Rate FiO2 08/14/21 07:00 18 Room Air 08/14/21 03:08 97.9 98 170/47 (88) 92 97.9 08/13/21 23:59 96.0 Physical Exam PHYSICAL EXAM GENERAL: Alert and oriented x 3 female, in no acute distress, appears depressed. HEENT: Normocephalic, atraumatic. NECK: Supple, no JVD. LUNGS: Clear. HEART: S1, S2. ABDOMEN: Soft, obese. Bowel sounds present. EXTREMITIES: Chronic lymphedema with cobblestone changes, chronic. Some draining wounds. Mild cellulitis. Per patient it is appearing there is some fecal debris in the legs. NEUROLOGIC: Alert, awake, somewhat weak, depressed. PSYCHIATRIC: Depressed. DERMATOLOGIC: Warm, dry, no generalized rash except for above. Labs Lab Laboratory Tests Test 08/13/21 11:44 08/13/21 16:53 08/13/21 21:06 Glucose (Fingerstick) 188 mg/dL (70-99) 192 mg/dL (70-99) 191 mg/dL (70-99) Objective Assessment IMPRESSION: 1. Chronic lymphedema with superimposed cellulitis, improving per patient report as per her treatment with IV vancomycin by Dr. Woodard. PICC line has been removed. 2. Acute kidney injury. 3. Recurrent fall. 4. Depression and anxiety. 5. Chronic pain, narcotic dependence. 6. HISTORY OF ALLERGIES TO PENICILLIN, CEPHALEXIN, TETRACYCLINE, CIPROFLOXACIN, AND ERYTHROMYCIN BASE. 7. Poor hygiene Plan Plan of Care antibiotics po Micafungin can be discontinued at discharge Discussed with pharmacy monitor closely Local care. Maintain hygiene. Elevate lower extremity. Patient will need lymphedema care. Discussed with at bedside. ok to d/c to [facility] RIKKI BAKER MD Aug 14, 2021 07:34
[2021-08-14] MEDS: POTASSIUM CHLORIDE 20 MEQ TABLET.ER. PO SCH (08:00)
[2021-08-14 08:12] LABS: BASO # 0.1 x10^3/uL (0.0-0.2); BASO % 1 % (0-3); EOS # 0.1 x10^3/uL (0.0-0.7); EOS % 2 % (0-3); HEMATOCRIT 30.5 % (36.0-47.0); HEMOGLOBIN 9.3 g/dL (12.0-15.5); LYMPH # 0.5 x10^3/uL (1.0-4.8); LYMPH % 10 % (24-48); MEAN CORPUSCULAR HEMOGLOBIN 29 pg (25-35); MEAN CORPUSCULAR HGB CONC 31 g/dL (31-37); MEAN CORPUSCULAR VOLUME 95 fL (79-100); MONO # 0.3 x10^3/uL (0.0-1.1); MONO % 6 % (0-9); NEUT # 3.7 x10^3/uL (1.8-7.7); NEUT % 80 % (31-73); PLATELET COUNT 228 x10^3/uL (140-400); RED BLOOD COUNT 3.21 x10^6/uL (3.50-5.40); RED CELL DISTRIBUTION WIDTH 20.5 % (11.5-14.5); WHITE BLOOD COUNT 4.6 x10^3/uL (4.0-11.0)
[2021-08-14 08:31] LABS: CALCIUM 8.1 mg/dL (8.5-10.1); CREATININE 1.5 mg/dL (0.6-1.0); GFR 35.3; POTASSIUM 4.7 mmol/L (3.5-5.1)
[2021-08-14] MEDS: NYSTATIN TOPICAL POWDER 15GM BOTTLE. TP SCH ×2 (08:58→21:16)
[2021-08-14] MEDS: BUMETANIDE 1 MG TABLET. PO SCH ×2 (08:58→14:00)
[2021-08-14] MEDS: SERTRALINE 50 MG TABLET. PO SCH (08:58)
[2021-08-14] MEDS: PANTOPRAZOLE 40 MG TABLET.DR. PO SCH ×2 (08:58→17:35)
[2021-08-14] MEDS: ASPIRIN CHEWABLE 81 MG TABLET. PO SCH (08:58)
[2021-08-14] MEDS: CEFDINIR 300 MG CAPSULE PO SCH ×2 (08:58→21:15)
[2021-08-14] MEDS: ALLOPURINOL 300 MG TABLET. PO SCH (08:58)
[2021-08-14] MEDS: AMMONIUM LACTATE 12% TOPICAL LOTION 225GM BOTTLE. TP SCH ×2 (08:58→21:16)
[2021-08-14] MEDS: CLOPIDOGREL BISULFATE 75 MG TABLET PO SCH (08:58)
[2021-08-14] MEDS: LACTOBACILLUS RHAMNOSUS GG 1 CAPSULE. PO SCH ×2 (08:58→21:15)
[2021-08-14] MEDS: INSULIN LISPRO 300 UNITS/3 ML VIAL. SQ SCH ×3 (08:59→17:56)
[2021-08-14] MEDS: ONDANSETRON PF 4 MG/2 ML VIAL. IVP PRN (08:59)
[2021-08-14] MEDS: MICAFUNGIN 100 MG in IV DEXTROSE 5% 100ML 100 ML IV SCH (10:24)
[2021-08-14 11:00] VITALS: BP 142/39
[2021-08-14 15:00] VITALS: BP 149/45
--- NOTE | 2021-08-14 17:47 | PDOC ---
[employer] PROGRESS NOTE Date of Service DOS: DATE: 08/14/21 TIME: 17:47 Chief Complaint Chief Complaint 1. Chronic lymphedema with superimposed cellulitis, 2. Acute kidney injury. 3. Recurrent fall. 4. Depression and anxiety. 5. Chronic pain, narcotic dependence. 6. HISTORY OF ALLERGIES TO PENICILLIN, CEPHALEXIN, TETRACYCLINE, CIPROFLOXACIN, AND ERYTHROMYCIN BASE. History of Present Illness History of Present Illness improving per patient report as per her treatment with IV vancomycin by Dr. Woodard she doing slowly better, still has pain, is very worried about transfer to Rehab, h her was here, Vitals/I&O Vitals/I&O: Vital Signs Date Time Temp Pulse Resp B/P (MAP) Pulse Ox O2 Delivery O2 Flow Rate FiO2 08/14/21 17:35 16 Room Air 08/14/21 15:00 97.1 98 149/45 (79) 98 97.1 08/13/21 23:59 96.0 I & O 08/13/21 08/13/21 08/14/21 15:00 23:00 07:00 Intake Total 550 ml 700 ml 1100 ml Output Total 200 ml Balance 550 ml 700 ml 900 ml Physical Exam Physical Exam: GENERAL: Alert and oriented x 3 female, in no acute distress, appears depressed. HEENT: Normocephalic, atraumatic. NECK: Supple, no JVD. LUNGS: Clear. HEART: S1, S2. ABDOMEN: Soft, obese. Bowel sounds present. EXTREMITIES: Chronic lymphedema with cobblestone changes, chronic. Some draining wounds. Mild cellulitis. Per patient it is appearing there is some fecal debris in the legs. NEUROLOGIC: Alert, awake, somewhat weak, depressed. PSYCHIATRIC: Depressed. DERMATOLOGIC: Warm, dry, no generalized rash except for above. General: Alert, Cooperative, mild distress, moderate distress Heart: Normal S2 Lungs: Wheezing Extremities: No cyanosis Skin: Other (rash, lymphedema with pustules) Labs Labs: Laboratory Tests Test 08/13/21 21:06 08/14/21 06:35 08/14/21 08:31 08/14/21 11:32 Glucose (Fingerstick) 191 mg/dL (70-99) 197 mg/dL (70-99) 228 mg/dL (70-99) White Blood Count 4.6 x10^3/uL (4.0-11.0) Red Blood Count 3.21 x10^6/uL (3.50-5.40) Hemoglobin 9.3 g/dL (12.0-15.5) Hematocrit 30.5 % (36.0-47.0) Mean Corpuscular Volume 95 fL (79-100) Mean Corpuscular Hemoglobin 29 pg (25-35) Mean Corpuscular Hemoglobin Concent 31 g/dL (31-37) Red Cell Distribution Width 20.5 % (11.5-14.5) Platelet Count 228 x10^3/uL (140-400) Neutrophils (%) (Auto) 80 % (31-73) Lymphocytes (%) (Auto) 10 % (24-48) Monocytes (%) (Auto) 6 % (0-9) Eosinophils (%) (Auto) 2 % (0-3) Basophils (%) (Auto) 1 % (0-3) Neutrophils # (Auto) 3.7 x10^3/uL (1.8-7.7) Lymphocytes # (Auto) 0.5 x10^3/uL (1.0-4.8) Monocytes # (Auto) 0.3 x10^3/uL (0.0-1.1) Eosinophils # (Auto) 0.1 x10^3/uL (0.0-0.7) Basophils # (Auto) 0.1 x10^3/uL (0.0-0.2) Sodium Level 133 mmol/L (136-145) Potassium Level 4.7 mmol/L (3.5-5.1) Chloride Level 100 mmol/L (98-107) Carbon Dioxide Level 22 mmol/L (21-32) Anion Gap 11 (6-14) Blood Urea Nitrogen 47 mg/dL (7-20) Creatinine 1.5 mg/dL (0.6-1.0) Estimated GFR (Cockcroft-Gault) 35.3 Glucose Level 180 mg/dL (70-99) Calcium Level 8.1 mg/dL (8.5-10.1) Test 08/14/21 15:19 Glucose (Fingerstick) 208 mg/dL (70-99) Assessment and Plan Assessmemt and Plan Problems Medical Problems: (1) Failure to thrive in adult Status: Acute (2) Falls frequently Status: Acute Comment Review of Relevant I have reviewed the following items jovana (where applicable) has been applied. Justifications for Admission Other Justification JOHN SANCHEZ MD Aug 14, 2021 17:47
[2021-08-14 19:00] VITALS: BP 104/54
[2021-08-14] MEDS: INSULIN GLARGINE SYRINGE. SQ SCH (21:00)
[2021-08-14] MEDS: MAGNESIUM OXIDE 400 MG TABLET PO SCH (21:15)
[2021-08-14 23:00] VITALS: BP 93/44
[2021-08-15] MEDS: oxyCODONE/APAP 10/325 1 TAB TABLET PO PRN ×6 (01:46→22:51)
[2021-08-15 03:00] VITALS: BP 106/51
[2021-08-15] MEDS: PANTOPRAZOLE 40 MG TABLET.DR. PO SCH ×2 (05:48→17:07)
[2021-08-15] MEDS: INSULIN LISPRO 300 UNITS/3 ML VIAL. SQ SCH ×3 (07:30→16:30)
[2021-08-15 07:38] VITALS: BP 113/60
[2021-08-15 07:46] LABS: BASO % 1 % (0-3); EOS # 0.2 x10^3/uL (0.0-0.7); EOS % 4 % (0-3); HEMATOCRIT 29.1 % (36.0-47.0); HEMOGLOBIN 9.3 g/dL (12.0-15.5); LYMPH # 0.6 x10^3/uL (1.0-4.8); LYMPH % 12 % (24-48); MEAN CORPUSCULAR HEMOGLOBIN 29 pg (25-35); MEAN CORPUSCULAR HGB CONC 32 g/dL (31-37); MEAN CORPUSCULAR VOLUME 92 fL (79-100); MONO # 0.4 x10^3/uL (0.0-1.1); MONO % 7 % (0-9); NEUT # 3.8 x10^3/uL (1.8-7.7); NEUT % 77 % (31-73); PLATELET COUNT 246 x10^3/uL (140-400); RED BLOOD COUNT 3.18 x10^6/uL (3.50-5.40); RED CELL DISTRIBUTION WIDTH 20.1 % (11.5-14.5)
[2021-08-15 07:51] LABS: CALCIUM 8.4 mg/dL (8.5-10.1); CREATININE 1.5 mg/dL (0.6-1.0); GFR 35.3; POTASSIUM 4.5 mmol/L (3.5-5.1)
[2021-08-15] MEDS: MICAFUNGIN 100 MG in IV DEXTROSE 5% 100ML 100 ML IV SCH (10:16)
[2021-08-15] MEDS: ALLOPURINOL 300 MG TABLET. PO SCH (10:20)
[2021-08-15] MEDS: POTASSIUM CHLORIDE 20 MEQ TABLET.ER. PO SCH (10:20)
[2021-08-15] MEDS: CEFDINIR 300 MG CAPSULE PO SCH ×2 (10:20→21:11)
[2021-08-15] MEDS: AMMONIUM LACTATE 12% TOPICAL LOTION 225GM BOTTLE. TP SCH ×2 (10:20→21:11)
[2021-08-15] MEDS: BUMETANIDE 1 MG TABLET. PO SCH ×2 (10:20→13:12)
[2021-08-15] MEDS: NYSTATIN TOPICAL POWDER 15GM BOTTLE. TP SCH ×2 (10:20→21:11)
[2021-08-15] MEDS: ASPIRIN CHEWABLE 81 MG TABLET. PO SCH (10:20)
[2021-08-15] MEDS: LACTOBACILLUS RHAMNOSUS GG 1 CAPSULE. PO SCH ×2 (10:21→21:11)
[2021-08-15] MEDS: SERTRALINE 50 MG TABLET. PO SCH (10:21)
[2021-08-15] MEDS: CLOPIDOGREL BISULFATE 75 MG TABLET PO SCH (10:21)
[2021-08-15 10:58] VITALS: BP 145/56
--- NOTE | 2021-08-15 12:47 | NUR ---
ASHWINI following. Discussed with RN, pt now mostly agreeable to SNF. ASHWINI met with pt, and pt's , they would like SW to try [facility]. ASHWINI phoned and faxed referral to [facility], awaiting acceptance decision. ASHWINI will continue to follow. Addendum: 08/15/21 at 1507 by DANA MARADIAGA [facility] declined. Pt agreeable to referral to [facility], [facility] and [facility], as well as [facility]. Fax sent to [facility], will send to another facility once fax clears. RN notified. Addendum: 08/15/21 at 1617 by DANA MARADIAGA [facility] declined. Referral faxed to [facility]. Awaiting acceptance decision.
[2021-08-15 15:10] VITALS: BP 121/59
[2021-08-15] MEDS: HYDROcodone/APAP 5/325MG 1 TAB TABLET PO PRN (17:07)
[2021-08-15 19:00] VITALS: BP 119/57
[2021-08-15] MEDS: INSULIN GLARGINE SYRINGE. SQ SCH (21:00)
[2021-08-15] MEDS: MAGNESIUM OXIDE 400 MG TABLET PO SCH (21:11)
[2021-08-15 23:38] VITALS: BP 127/52
[2021-08-16 03:32] VITALS: BP 150/75
[2021-08-16] MEDS: oxyCODONE/APAP 10/325 1 TAB TABLET PO PRN ×5 (03:32→21:16)
[2021-08-16 07:00] VITALS: BP 128/60
[2021-08-16] MEDS: INSULIN LISPRO 300 UNITS/3 ML VIAL. SQ SCH ×3 (07:30→17:04)
[2021-08-16] MEDS: PANTOPRAZOLE 40 MG TABLET.DR. PO SCH ×2 (07:52→17:00)
[2021-08-16] MEDS: POTASSIUM CHLORIDE 20 MEQ TABLET.ER. PO SCH (07:52)
[2021-08-16] MEDS: CEFDINIR 300 MG CAPSULE PO SCH ×2 (09:47→21:14)
[2021-08-16] MEDS: ALLOPURINOL 300 MG TABLET. PO SCH (09:47)
[2021-08-16] MEDS: CLOPIDOGREL BISULFATE 75 MG TABLET PO SCH (09:47)
[2021-08-16] MEDS: SERTRALINE 50 MG TABLET. PO SCH (09:47)
[2021-08-16] MEDS: BUMETANIDE 1 MG TABLET. PO SCH ×2 (09:48→13:24)
[2021-08-16] MEDS: ASPIRIN CHEWABLE 81 MG TABLET. PO SCH (09:48)
[2021-08-16] MEDS: LACTOBACILLUS RHAMNOSUS GG 1 CAPSULE. PO SCH ×2 (09:48→21:14)
[2021-08-16] MEDS: AMMONIUM LACTATE 12% TOPICAL LOTION 225GM BOTTLE. TP SCH ×2 (09:49→21:17)
[2021-08-16] MEDS: NYSTATIN TOPICAL POWDER 15GM BOTTLE. TP SCH ×2 (09:49→21:17)
[2021-08-16] MEDS: MICAFUNGIN 100 MG in IV DEXTROSE 5% 100ML 100 ML IV SCH (09:53)
[2021-08-16 11:00] VITALS: BP 116/56
[2021-08-16] MEDS: HYDROcodone/APAP 5/325MG 1 TAB TABLET PO PRN ×2 (13:23→21:15)
--- NOTE | 2021-08-16 13:23 | PDOC ---
[employer] PROGRESS NOTE Date of Service DOS: DATE: 08/16/21 TIME: 13:22 Chief Complaint Chief Complaint LATE ENTRY, tried to DC seen on 08/15, prob 25 minutes in room 1. Chronic lymphedema with superimposed cellulitis, 2. Acute kidney injury. 3. Recurrent fall. 4. Depression and anxiety. 5. Chronic pain, narcotic dependence. 6. HISTORY OF ALLERGIES TO PENICILLIN, CEPHALEXIN, TETRACYCLINE, CIPROFLOXACIN, AND ERYTHROMYCIN BASE. History of Present Illness History of Present Illness still very weak, SNU discharge planned for 08/15, denied, will try home health, she needs to get stronger improving per patient good skin care, lesions looko better, smell has improvede markedly Vitals/I&O Vitals/I&O: Vital Signs Date Time Temp Pulse Resp B/P (MAP) Pulse Ox O2 Delivery O2 Flow Rate FiO2 08/16/21 12:26 Room Air 08/16/21 11:00 97.4 97 18 116/56 (76) 91 97.4 08/16/21 07:50 96.0 I & O 08/15/21 08/15/21 08/16/21 15:00 23:00 07:00 Intake Total 240 ml 740 ml 600 ml Output Total 200 ml 500 ml Balance 240 ml 540 ml 100 ml Physical Exam Physical Exam: GENERAL: Alert and oriented x 3 female, in no acute distress, appears depressed. HEENT: Normocephalic, atraumatic. NECK: Supple, no JVD. LUNGS: Clear. HEART: S1, S2. ABDOMEN: Soft, obese. Bowel sounds present. EXTREMITIES: Chronic lymphedema with cobblestone changes, chronic. Some draining wounds. Mild cellulitis. Per patient it is appearing there is some fecal debris in the legs. NEUROLOGIC: Alert, awake, somewhat weak, depressed. PSYCHIATRIC: Depressed. DERMATOLOGIC: Warm, dry, no generalized rash except for above. General: Alert, Cooperative, mild distress, moderate distress Heart: Normal S2 Lungs: Wheezing Extremities: No cyanosis Skin: Other (rash, lymphedema with pustules) Labs Labs: Laboratory Tests Test 08/15/21 16:55 08/15/21 21:14 08/16/21 08:32 08/16/21 11:32 Glucose (Fingerstick) 147 mg/dL (70-99) 164 mg/dL (70-99) 150 mg/dL (70-99) 184 mg/dL (70-99) Assessment and Plan Assessmemt and Plan Problems Medical Problems: (1) Failure to thrive in adult Status: Acute (2) Falls frequently Status: Acute Comment Review of Relevant I have reviewed the following items jovana (where applicable) has been applied. Justifications for Admission Other Justification JOHN SANCHEZ MD Aug 16, 2021 13:23
--- NOTE | 2021-08-16 13:30 | PDOC ---
[employer] PROGRESS NOTE Date of Service DOS: DATE: 08/16/21 TIME: 13:29 Chief Complaint Chief Complaint 08/16 1. Chronic lymphedema with superimposed cellulitis, 2. Acute kidney injury. 3. Recurrent fall. 4. Depression and anxiety. 5. Chronic pain, narcotic dependence. 6. HISTORY OF ALLERGIES TO PENICILLIN, CEPHALEXIN, TETRACYCLINE, CIPROFLOXACIN, AND ERYTHROMYCIN BASE. History of Present Illness History of Present Illness 08/16, she says she did much better yesterday and will try again today, try to transfer, is sitting on edge of bed, may be able to transfer home improving per patient she is much less anxious, doing better Vitals/I&O Vitals/I&O: Vital Signs Date Time Temp Pulse Resp B/P (MAP) Pulse Ox O2 Delivery O2 Flow Rate FiO2 08/16/21 13:23 Room Air 08/16/21 11:00 97.4 97 18 116/56 (76) 91 97.4 08/16/21 07:50 96.0 I & O 08/15/21 08/15/21 08/16/21 15:00 23:00 07:00 Intake Total 240 ml 740 ml 600 ml Output Total 200 ml 500 ml Balance 240 ml 540 ml 100 ml Physical Exam Physical Exam: GENERAL: Alert and oriented x 3 female, in no acute distress, appears depressed. HEENT: Normocephalic, atraumatic. NECK: Supple, no JVD. LUNGS: Clear. HEART: S1, S2. ABDOMEN: Soft, obese. Bowel sounds present. EXTREMITIES: Chronic lymphedema with cobblestone changes, chronic. Some draining wounds. Mild cellulitis. Per patient it is appearing there is some fecal debris in the legs. NEUROLOGIC: Alert, awake, somewhat weak, depressed. PSYCHIATRIC: Depressed. DERMATOLOGIC: Warm, dry, no generalized rash except for above. General: Alert, Cooperative, mild distress, moderate distress Heart: Normal S2 Lungs: Wheezing Extremities: No cyanosis Skin: Other (rash, lymphedema with pustules) Labs Labs: Laboratory Tests Test 08/15/21 16:55 08/15/21 21:14 08/16/21 08:32 08/16/21 11:32 Glucose (Fingerstick) 147 mg/dL (70-99) 164 mg/dL (70-99) 150 mg/dL (70-99) 184 mg/dL (70-99) Assessment and Plan Assessmemt and Plan Problems Medical Problems: (1) Failure to thrive in adult Status: Acute (2) Falls frequently Status: Acute Comment Review of Relevant I have reviewed the following items jovana (where applicable) has been applied. Justifications for Admission Other Justification JONH SANCHEZ MD Aug 16, 2021 13:30
[2021-08-16 15:00] VITALS: BP 144/40
[2021-08-16 19:00] VITALS: BP 121/49
[2021-08-16] MEDS: INSULIN GLARGINE SYRINGE. SQ SCH (21:00)
[2021-08-16] MEDS: MAGNESIUM OXIDE 400 MG TABLET PO SCH (21:14)
[2021-08-16 23:00] VITALS: BP 113/65
[2021-08-17] MEDS: oxyCODONE/APAP 10/325 1 TAB TABLET PO PRN ×5 (01:49→20:19)
[2021-08-17 03:00] VITALS: BP 113/56
[2021-08-17] MEDS: PANTOPRAZOLE 40 MG TABLET.DR. PO SCH ×2 (05:40→16:47)
[2021-08-17 07:00] VITALS: BP 104/55
[2021-08-17] MEDS: AMMONIUM LACTATE 12% TOPICAL LOTION 225GM BOTTLE. TP SCH ×2 (09:00→20:20)
[2021-08-17] MEDS: NYSTATIN TOPICAL POWDER 15GM BOTTLE. TP SCH ×2 (09:00→20:20)
[2021-08-17] MEDS: LACTOBACILLUS RHAMNOSUS GG 1 CAPSULE. PO SCH ×2 (09:26→20:19)
[2021-08-17] MEDS: SERTRALINE 50 MG TABLET. PO SCH (09:26)
[2021-08-17] MEDS: CLOPIDOGREL BISULFATE 75 MG TABLET PO SCH (09:26)
[2021-08-17] MEDS: POTASSIUM CHLORIDE 20 MEQ TABLET.ER. PO SCH (09:26)
[2021-08-17] MEDS: CEFDINIR 300 MG CAPSULE PO SCH ×2 (09:26→20:19)
[2021-08-17] MEDS: ASPIRIN CHEWABLE 81 MG TABLET. PO SCH (09:26)
[2021-08-17] MEDS: BUMETANIDE 1 MG TABLET. PO SCH ×2 (09:26→12:54)
[2021-08-17] MEDS: ALLOPURINOL 300 MG TABLET. PO SCH (09:26)
[2021-08-17] MEDS: INSULIN LISPRO 300 UNITS/3 ML VIAL. SQ SCH ×3 (09:34→16:50)
[2021-08-17] MEDS: MICAFUNGIN 100 MG in IV DEXTROSE 5% 100ML 100 ML IV SCH (10:11)
--- NOTE | 2021-08-17 12:18 | PDOC ---
[employer] PROGRESS NOTE Date of Service DOS: DATE: 08/17/21 TIME: 12:15 Chief Complaint Chief Complaint 08/17 she says she is too weak to go today, cannot transfer, I twice at length discussed that we need to try to DC home everyday, her medical problems are stable, her weakness will improve with effort 1. Chronic lymphedema with superimposed cellulitis, 2. Acute kidney injury. 3. Recurrent fall. 4. Depression and anxiety. 5. Chronic pain, narcotic dependence. 6. HISTORY OF ALLERGIES TO PENICILLIN, CEPHALEXIN, TETRACYCLINE, CIPROFLOXACIN, AND ERYTHROMYCIN BASE. History of Present Illness History of Present Illness denied skilled, anxiety and high need noted, she needs to work hard to improve, ready to DC - she cannot transfer to stand, will try to DC everyday, improving per patient good skin care, lesions look really good, continues to be better, no longer having any odor, was high odor 6 days ago Vitals/I&O Vitals/I&O: Vital Signs Date Time Temp Pulse Resp B/P (MAP) Pulse Ox O2 Delivery O2 Flow Rate FiO2 08/17/21 10:57 Room Air 08/17/21 07:00 97.9 95 20 104/55 (71) 95 97.9 08/17/21 06:34 96.0 I & O 08/16/21 08/16/21 08/17/21 15:00 23:00 07:00 Intake Total 700 ml 300 ml Output Total 300 ml 1100 ml Balance 700 ml 0 ml -1100 ml Physical Exam Physical Exam: GENERAL: Alert and oriented x 3 female, in no acute distress, appears depressed. HEENT: Normocephalic, atraumatic. NECK: Supple, no JVD. LUNGS: Clear. HEART: S1, S2. ABDOMEN: Soft, obese. Bowel sounds present. EXTREMITIES: Chronic lymphedema with cobblestone changes, chronic. Some draining wounds. Mild cellulitis. Per patient it is appearing there is some fecal debris in the legs. NEUROLOGIC: Alert, awake, somewhat weak, depressed. PSYCHIATRIC: Depressed. DERMATOLOGIC: Warm, dry, no generalized rash except for above. General: Alert, Cooperative, mild distress, moderate distress Heart: Normal S2 Lungs: Wheezing Extremities: No cyanosis Skin: Other (rash, lymphedema with pustules) Labs Labs: Laboratory Tests Test 08/16/21 16:56 08/16/21 20:13 08/17/21 05:51 Glucose (Fingerstick) 182 mg/dL (70-99) 151 mg/dL (70-99) 180 mg/dL (70-99) Assessment and Plan Assessmemt and Plan Problems Medical Problems: (1) Failure to thrive in adult Status: Acute (2) Falls frequently Status: Acute Comment Review of Relevant I have reviewed the following items jovana (where applicable) has been applied. Justifications for Admission Other Justification JOHN SANCHEZ MD Aug 17, 2021 12:18
[2021-08-17 15:00] VITALS: BP 114/53
[2021-08-17] MEDS: HYDROcodone/APAP 5/325MG 1 TAB TABLET PO PRN (16:47)
[2021-08-17 18:39] VITALS: BP 101/40
[2021-08-17] MEDS: MAGNESIUM OXIDE 400 MG TABLET PO SCH (20:19)
[2021-08-17] MEDS: INSULIN GLARGINE SYRINGE. SQ SCH (21:00)
[2021-08-17 23:30] VITALS: BP 166/81
[2021-08-18] VITALS (7 sets, daily range): BP systolic 86–148; BP diastolic 40–80
[2021-08-18] MEDS: oxyCODONE/APAP 10/325 1 TAB TABLET PO PRN ×6 (01:39→22:22)
[2021-08-18] MEDS: INSULIN LISPRO 300 UNITS/3 ML VIAL. SQ SCH ×3 (07:30→17:01)
[2021-08-18] MEDS: LACTOBACILLUS RHAMNOSUS GG 1 CAPSULE. PO SCH ×2 (09:47→20:59)
[2021-08-18] MEDS: PANTOPRAZOLE 40 MG TABLET.DR. PO SCH ×2 (09:47→16:57)
[2021-08-18] MEDS: SERTRALINE 50 MG TABLET. PO SCH (09:47)
[2021-08-18] MEDS: POTASSIUM CHLORIDE 20 MEQ TABLET.ER. PO SCH (09:48)
[2021-08-18] MEDS: CEFDINIR 300 MG CAPSULE PO SCH ×2 (09:48→20:59)
[2021-08-18] MEDS: BUMETANIDE 1 MG TABLET. PO SCH ×2 (09:48→13:38)
[2021-08-18] MEDS: ASPIRIN CHEWABLE 81 MG TABLET. PO SCH (09:48)
[2021-08-18] MEDS: CLOPIDOGREL BISULFATE 75 MG TABLET PO SCH (09:48)
[2021-08-18] MEDS: ALLOPURINOL 300 MG TABLET. PO SCH (09:49)
[2021-08-18] MEDS: AMMONIUM LACTATE 12% TOPICAL LOTION 225GM BOTTLE. TP SCH ×2 (09:50→21:00)
[2021-08-18] MEDS: NYSTATIN TOPICAL POWDER 15GM BOTTLE. TP SCH ×2 (09:50→21:00)
[2021-08-18] MEDS: MICAFUNGIN 100 MG in IV DEXTROSE 5% 100ML 100 ML IV SCH (11:29)
--- NOTE | 2021-08-18 12:47 | NUR ---
ASHWINI following. Discussed with RN, [facility] declined to take pt. Pt and family requesting referral to [facility], ASHWINI faxed referral, awaiting acceptance decision and insurance auth. ASHWINI will continue to follow. Addendum: 08/18/21 at 1604 by DANA MARADIAGA Pt accepted at [facility], pending insurance auth.
[2021-08-18 13:46] LABS: CALCIUM 8.2 mg/dL (8.5-10.1); CREATININE 1.6 mg/dL (0.6-1.0); GFR 32.8; POTASSIUM 4.9 mmol/L (3.5-5.1)
--- NOTE | 2021-08-18 14:48 | PDOC ---
[employer] PROGRESS NOTE Date of Service DOS: DATE: 08/18/21 TIME: 14:45 Chief Complaint Chief Complaint Chronic lymphedema with superimposed cellulitis, Acute kidney injury. Recurrent fall. Depression and anxiety. Chronic pain, narcotic dependence. History of Present Illness History of Present Illness 08/18/2021 No acute events overnight. Patient seen and examined bedside. at bedside assisting with transfers. [facility] and family requesting referral to [facility] at this time. 08/17 she says she is too weak to go today, cannot transfer, I twice at length discussed that we need to try to DC home everyday, her medical problems are stable, her weakness will improve with effort denied skilled, anxiety and high need noted, she needs to work hard to improve, ready to DC - she cannot transfer to stand, will try to DC everyday, improving per patient good skin care, lesions look really good, continues to be better, no longer having any odor, was high odor 6 days ago Vitals/I&O Vitals/I&O: Vital Signs Date Time Temp Pulse Resp B/P (MAP) Pulse Ox O2 Delivery O2 Flow Rate FiO2 08/18/21 14:08 18 98 Room Air 08/18/21 11:09 97.8 98 109/57 (74) 97.8 08/17/21 08:05 96.0 I & O 08/17/21 08/17/21 08/18/21 15:00 23:00 07:00 Intake Total 590 ml Output Total 600 ml Balance -10 ml Physical Exam Physical Exam: GENERAL: Alert and oriented x 3 female, in no acute distress, appears depressed. HEENT: Normocephalic, atraumatic. NECK: Supple, no JVD. LUNGS: Clear. HEART: S1, S2. ABDOMEN: Soft, obese. Bowel sounds present. EXTREMITIES: Chronic lymphedema with cobblestone changes, chronic. Some draining wounds. Mild cellulitis. Per patient it is appearing there is some fecal debris in the legs. NEUROLOGIC: Alert, awake, somewhat weak, depressed. PSYCHIATRIC: Depressed. DERMATOLOGIC: Warm, dry, no generalized rash except for above. General: Alert, Cooperative, mild distress, moderate distress Heart: Normal S2 Lungs: Wheezing Extremities: No cyanosis Skin: Other (rash, lymphedema with pustules) Labs Labs: Laboratory Tests Test 08/17/21 16:45 08/18/21 08:28 08/18/21 11:23 08/18/21 12:15 Glucose (Fingerstick) 174 mg/dL (70-99) 143 mg/dL (70-99) 180 mg/dL (70-99) Sodium Level 133 mmol/L (136-145) Potassium Level 4.9 mmol/L (3.5-5.1) Chloride Level 100 mmol/L (98-107) Carbon Dioxide Level 27 mmol/L (21-32) Anion Gap 6 (6-14) Blood Urea Nitrogen 50 mg/dL (7-20) Creatinine 1.6 mg/dL (0.6-1.0) Estimated GFR (Cockcroft-Gault) 32.8 Glucose Level 159 mg/dL (70-99) Calcium Level 8.2 mg/dL (8.5-10.1) Assessment and Plan Assessmemt and Plan Problems Medical Problems: (1) Failure to thrive in adult Status: Acute (2) Falls frequently Status: Acute Comment Review of Relevant I have reviewed the following items jovana (where applicable) has been applied. Justifications for Admission Other Justification DEANDRA DREW MD Aug 18, 2021 14:48
[2021-08-18] MEDS: INSULIN GLARGINE SYRINGE. SQ SCH (20:58)
[2021-08-18] MEDS: MAGNESIUM OXIDE 400 MG TABLET PO SCH (20:59)
[2021-08-18] MEDS: HYDROcodone/APAP 5/325MG 1 TAB TABLET PO PRN (21:04)
[2021-08-18] MEDS: CALCIUM CARBONATE 500 MG TAB.CHEW PO PRN (22:25)
[2021-08-19] VITALS (12 sets, daily range): BP systolic 104–135; BP diastolic 42–76
[2021-08-19] MEDS ORDERED: IV NORMAL SALINE 500ML BAG 500 ML IV ONE (00:30)
[2021-08-19] MEDS ORDERED: DIGOXIN IV 500 MCG/2 ML AMPUL. IV PRN (00:30)
[2021-08-19] MEDS ORDERED: DIGOXIN IV 500 MCG/2 ML AMPUL. IV ONE (00:30)
--- NOTE | 2021-08-19 01:00 | NUR ---
Patient transferred to room 111 per bed with belongings. Report called to MESSI Chicas. Patient notified family.
--- NOTE | 2021-08-19 01:52 | NUR ---
Rapid response called on patient for c/o chest pain. This nurse arrived to patient's room at 2348. Patient with a&o and not in any distress. She is /complaining of chest pain at 7/10 on pain scale that started after she ate a piece of carrot cake approximately 45 minutes prior to the rapid response being called. The patient describes the pain as "achy, midsternal and constant." 12 lead EKG and labs obtained. 12 lead EKG showed A fib RVR with HR [address] Melchor notified at 0025 and new orders received. Patient transferred to room 111.
[2021-08-19] MEDS: oxyCODONE/APAP 10/325 1 TAB TABLET PO PRN ×6 (02:03→22:31)
[2021-08-19] MEDS: ALLOPURINOL 300 MG TABLET. PO SCH (08:06)
[2021-08-19] MEDS: LACTOBACILLUS RHAMNOSUS GG 1 CAPSULE. PO SCH ×2 (08:06→21:12)
[2021-08-19] MEDS: POTASSIUM CHLORIDE 20 MEQ TABLET.ER. PO SCH (08:06)
[2021-08-19] MEDS: SERTRALINE 50 MG TABLET. PO SCH (08:07)
[2021-08-19] MEDS: BUMETANIDE 1 MG TABLET. PO SCH ×2 (08:07→14:34)
[2021-08-19] MEDS: CLOPIDOGREL BISULFATE 75 MG TABLET PO SCH (08:07)
[2021-08-19] MEDS: PANTOPRAZOLE 40 MG TABLET.DR. PO SCH ×2 (08:07→17:46)
[2021-08-19] MEDS: ASPIRIN CHEWABLE 81 MG TABLET. PO SCH (08:07)
[2021-08-19] MEDS: ONDANSETRON PF 4 MG/2 ML VIAL. IVP PRN (08:20)
[2021-08-19] MEDS: CEFDINIR 300 MG CAPSULE PO SCH ×2 (09:20→21:12)
[2021-08-19] MEDS: INSULIN LISPRO 300 UNITS/3 ML VIAL. SQ SCH ×3 (09:21→16:30)
[2021-08-19] MEDS: METOPROLOL SUCC 24HR ER 25 MG TAB.ER.24H. PO SCH (09:21)
[2021-08-19] MEDS: AMMONIUM LACTATE 12% TOPICAL LOTION 225GM BOTTLE. TP SCH ×2 (09:23→21:12)
[2021-08-19] MEDS: NYSTATIN TOPICAL POWDER 15GM BOTTLE. TP SCH ×2 (09:23→21:12)
[2021-08-19] MEDS: MICAFUNGIN 100 MG in IV DEXTROSE 5% 100ML 100 ML IV SCH (10:12)
[2021-08-19 10:15] LABS: BASO % 1 % (0-3); EOS # 0.1 x10^3/uL (0.0-0.7); EOS % 3 % (0-3); HEMATOCRIT 31.2 % (36.0-47.0); HEMOGLOBIN 9.9 g/dL (12.0-15.5); LYMPH # 0.4 x10^3/uL (1.0-4.8); LYMPH % 11 % (24-48); MEAN CORPUSCULAR HEMOGLOBIN 29 pg (25-35); MEAN CORPUSCULAR HGB CONC 32 g/dL (31-37); MEAN CORPUSCULAR VOLUME 92 fL (79-100); MONO # 0.3 x10^3/uL (0.0-1.1); MONO % 7 % (0-9); NEUT # 3.3 x10^3/uL (1.8-7.7); NEUT % 78 % (31-73); PLATELET COUNT 260 x10^3/uL (140-400); RED BLOOD COUNT 3.39 x10^6/uL (3.50-5.40); RED CELL DISTRIBUTION WIDTH 20.8 % (11.5-14.5); WHITE BLOOD COUNT 4.2 x10^3/uL (4.0-11.0)
[2021-08-19 10:30] LABS: CALCIUM 8.3 mg/dL (8.5-10.1); CREATININE 1.6 mg/dL (0.6-1.0); GFR 32.8; POTASSIUM 4.9 mmol/L (3.5-5.1)
--- NOTE | 2021-08-19 10:30 | PDOC2 ---
CARDIAC CONSULT DATE OF CONSULT Date of Consult DATE: 08/19/21 TIME: 10:17 REASON FOR CONSULT Reason for Consult: AFIB RVR REFERRING PHYSICIAN Referring Physician: Ruiz SOURCE Source: Chart review, Patient HISTORY OF PRESENT ILLNESS HISTORY OF PRESENT ILLNESS This is a 61 yo female admitted for complains of weakness leg swelling and pain and falls. No passing out, chest pain or SOA. Reports chronic lyphedema. No fever or chills. She is unvaccinated for covid-19. She has been feeling weak. She had gastric bypass in 2010 loss over 100 pounds but gained it back. She probably has hx of AFIB she told me but no anticoagulation therapy. 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 No nausea vomiting or diarrhea. Last night she had an episode of AFIB RVR and converted to SR after digoxin. PAST MEDICAL HISTORY Cardiovascular: AFIB (?), CAD, CHF, HTN, Hyperlipidemia, Other (carootid artery disease; chronic lymphedema) Pulmonary: No pertinent hx CENTRAL NERVOUS SYSTEM: Other (No pertinent history) GI: GERD Heme/Onc: Anemia NOS, Cancer (uterine) Hepatobiliary: No pertinent hx Psych: Anxiety Musculoskeletal: Osteoarthritis Rheumatologic: Gout Infectious disease: No pertinent hx ENT: No pertinent hx Renal/: Chronic renal insuff Endocrine: Diabetes Dermatology: Other (LE dermatitis) PAST SURGICAL HISTORY Past Surgical History: CABG (x3), Cataract Removal, Hysterectomy, Other (gastric bypass 2009, bilateral CEA, PCI 2019) FAMILY HISTORY Family History: Diabetes SOCIAL HISTORY Smoke: Quit ALCOHOL: none Drugs: None Lives: with Family CURRENT MEDICATIONS CURRENT MEDICATIONS Current Medications Medications (Trade) Dose Ordered Sig/Henrietta Route PRN Reason Start Time Stop Time Status Last Admin Dose Admin Sodium Chloride 500 ml @ 500 mls/hr 1X ONCE IV 08/19/21 00:30 08/19/21 01:29 DC 08/19/21 00:30 Digoxin (Lanoxin) 500 mcg 1X ONCE IV 08/19/21 00:30 08/19/21 00:45 DC 08/19/21 01:15 Metoprolol Succinate (Toprol Xl) 25 mg DAILY PO 08/19/21 09:15 08/19/21 09:21 ALLERGIES ALLERGIES: Coded Allergies: Penicillins (Unverified Allergy, Intermediate, WELTS, 08/09/21) Tetracyclines (Verified Allergy, Intermediate, 08/08/21) alprazolam (Verified Allergy, Intermediate, 08/08/21) cephalexin (Unverified Allergy, Intermediate, 02/14/18) ciprofloxacin (Verified Allergy, Intermediate, 08/08/21) codeine (Unverified Allergy, Intermediate, 02/14/18) erythromycin base (Verified Allergy, Intermediate, 08/08/21) hydrochlorothiazide (Unverified Allergy, Intermediate, 02/14/18) indomethacin (Verified Allergy, Intermediate, 08/08/21) kiwi (Verified Allergy, Intermediate, 08/08/21) matthew (Verified Allergy, Intermediate, 08/08/21) morphine (Unverified Allergy, Intermediate, 02/14/18) shellfish derived (Verified Allergy, Intermediate, 08/08/21) sulfamethoxazole (Verified Allergy, Intermediate, 08/08/21) triamterene (Unverified Allergy, Intermediate, 02/14/18) trimethoprim (Verified Allergy, Intermediate, 08/08/21) watermelon (Verified Allergy, Intermediate, 08/08/21) ROS Review of System 14 point ROS evaluated with pertinent positives noted per HPI PHYSICAL EXAM General: Alert, Oriented X3, Cooperative, No acute distress HEENT: Atraumatic, Mucous membr. moist/pink Lungs: Clear to auscultation, Normal air movement Heart: Regular rate (SR), Other (distant heart sounds) Abdomen: Soft, Other (obese) Extremities: No cyanosis, Other (chronic LE lymphedema) Skin: Other (LE lichenification) Neuro: Normal speech, Sensation intact Psych/Mental Status: Mental status NL, Mood NL MUSCULOSKELETAL: Osteoarthritic changes both hands VITALS/I&O VITALS/I&O: Vital Signs Date Time Temp Pulse Resp B/P (MAP) Pulse Ox O2 Delivery O2 Flow Rate FiO2 08/19/21 09:21 87 104/58 08/19/21 08:00 Room Air 08/19/21 07:04 12 100 08/19/21 06:34 96.0 08/19/21 01:00 97.5 97.5 I & O 08/18/21 08/18/21 08/19/21 15:00 23:00 07:00 Intake Total 100 ml 600 ml 700 ml Output Total 700 ml 300 ml 200 ml Balance -600 ml 300 ml 500 ml LABS Lab: Laboratory Tests Test 08/18/21 11:23 08/18/21 12:15 08/18/21 16:43 08/18/21 20:51 Glucose (Fingerstick) 180 mg/dL (70-99) H 182 mg/dL (70-99) H 157 mg/dL (70-99) H Sodium Level 133 mmol/L (136-145) L Potassium Level 4.9 mmol/L (3.5-5.1) Chloride Level 100 mmol/L (98-107) Carbon Dioxide Level 27 mmol/L (21-32) Anion Gap 6 (6-14) Blood Urea Nitrogen 50 mg/dL (7-20) H Creatinine 1.6 mg/dL (0.6-1.0) H Estimated GFR (Cockcroft-Gault) 32.8 Glucose Level 159 mg/dL (70-99) H Calcium Level 8.2 mg/dL (8.5-10.1) L Test 08/19/21 00:35 08/19/21 04:39 08/19/21 08:09 Magnesium Level 2.1 mg/dL (1.8-2.4) Troponin I Quantitative 0.034 ng/mL (0.000-0.055) Thyroid Stimulating Hormone (TSH) 9.248 uIU/mL (0.358-3.74) H Glucose (Fingerstick) 164 mg/dL (70-99) H 147 mg/dL (70-99) H Laboratory Tests 08/18/21 12:15 ASSESSMENT/PLAN ASSESSMENT/PLAN 1. Bilateral LE cellulitis with chronic lymphedema 2. Hypothyroidism: new. per PCP 3. Debility 4. CKD3 with past hx of HD: reported IV dye related 5. PAFIB with RVR: converted to SR with digoxin 6. CAD: past CABG x3 with PCI in 2019 7. Chronic diastolic CHF 8. DM2: per PCP 9. HTN: controlled 10. HLP 11. Morbid obesity Recommendations 1. Restart home metoprolol. ASA and plavix 2. Secondary prevention measures 3. Antibiotics per ID 4. Will establish cardiology in our office. TTE. today 5. BRENNA VILLEGAS APRN Aug 19, 2021 10:30
[2021-08-19 10:44] LABS: CHOLESTEROL/HDL RATIO 2.3
--- NOTE | 2021-08-19 12:09 | PDOC ---
[employer] PROGRESS NOTE Date of Service DOS: DATE: 08/19/21 TIME: 12:00 Chief Complaint Chief Complaint Acute PAFIB - was on home metoprolol Subclinical hypothyroidism Chronic lymphedema with superimposed cellulitis, Acute kidney injury. Recurrent fall. Depression and anxiety. Chronic pain, narcotic dependence Cardiology consulted appreciate the recommendationscontinue with metoprolol and pending TTE. Pending anti-thyroid peroxidase Ab Will start on low dose synthroid History of Present Illness History of Present Illness 08/19/2021 Patient had rapid response initiated last night due to A. fib RVR. Heart rate in the 140s. Digoxin 1 dose given and patient reverted back to normal sinus rhythm. Patient hemodynamically stable and asymptomatic at the time. Patient continues to complain of some nausea and weakness. She states that she ate the sausage for breakfast but she feels nausea however she was still eating the sausage when she was nauseous. Patient's chart, labs, images were reviewed and discussed with RN 08/18/2021 No acute events overnight. Patient seen and examined bedside. at bedside assisting with transfers. Patient is willing to go to assisted facility and family requesting referral [facility] at this time. 08/17 she says she is too weak to go today, cannot transfer, I twice at length discussed that we need to try to DC home everyday, her medical problems are stable, her weakness will improve with effort denied skilled, anxiety and high need noted, she needs to work hard to improve, ready to DC - she cannot transfer to stand, will try to DC everyday, improving per patient good skin care, lesions look really good, continues to be better, no longer having any odor, was high odor 6 days ago Vitals/I&O Vitals/I&O: Vital Signs Date Time Temp Pulse Resp B/P (MAP) Pulse Ox O2 Delivery O2 Flow Rate FiO2 08/19/21 10:33 12 100 Room Air 08/19/21 09:21 87 104/58 08/19/21 06:34 96.0 08/19/21 01:00 97.5 97.5 I & O 08/18/21 08/18/21 08/19/21 14:59 22:59 06:59 Intake Total 100 ml 600 ml 700 ml Output Total 700 ml 300 ml 200 ml Balance -600 ml 300 ml 500 ml Physical Exam Physical Exam: GENERAL: Alert and oriented x 3 female, in no acute distress, appears depressed. HEENT: Normocephalic, atraumatic. NECK: Supple, no JVD. LUNGS: Clear. HEART: S1, S2. ABDOMEN: Soft, obese. Bowel sounds present. EXTREMITIES: Chronic lymphedema with cobblestone changes, chronic. Some draining wounds. Mild cellulitis. Per patient it is appearing there is some fecal debris in the legs. NEUROLOGIC: Alert, awake, somewhat weak, depressed. PSYCHIATRIC: Depressed. DERMATOLOGIC: Warm, dry, no generalized rash except for above. General: Alert, Oriented X3, Cooperative, No acute distress Heart: Regular rate (SR), Other (distant heart sounds) Lungs: Wheezing Abdomen: Soft, Other (obese) Extremities: No cyanosis, Other (chronic LE lymphedema) Skin: Other (LE lichenification) Labs Labs: Laboratory Tests Test 08/18/21 12:15 08/18/21 16:43 08/18/21 20:51 08/19/21 00:35 Sodium Level 133 mmol/L (136-145) Potassium Level 4.9 mmol/L (3.5-5.1) Chloride Level 100 mmol/L (98-107) Carbon Dioxide Level 27 mmol/L (21-32) Anion Gap 6 (6-14) Blood Urea Nitrogen 50 mg/dL (7-20) Creatinine 1.6 mg/dL (0.6-1.0) Estimated GFR (Cockcroft-Gault) 32.8 Glucose Level 159 mg/dL (70-99) Calcium Level 8.2 mg/dL (8.5-10.1) Glucose (Fingerstick) 182 mg/dL (70-99) 157 mg/dL (70-99) Magnesium Level 2.1 mg/dL (1.8-2.4) Troponin I Quantitative 0.034 ng/mL (0.000-0.055) Thyroid Stimulating Hormone (TSH) 9.248 uIU/mL (0.358-3.74) Test 08/19/21 04:39 08/19/21 08:09 08/19/21 09:40 Glucose (Fingerstick) 164 mg/dL (70-99) 147 mg/dL (70-99) White Blood Count 4.2 x10^3/uL (4.0-11.0) Red Blood Count 3.39 x10^6/uL (3.50-5.40) Hemoglobin 9.9 g/dL (12.0-15.5) Hematocrit 31.2 % (36.0-47.0) Mean Corpuscular Volume 92 fL (79-100) Mean Corpuscular Hemoglobin 29 pg (25-35) Mean Corpuscular Hemoglobin Concent 32 g/dL (31-37) Red Cell Distribution Width 20.8 % (11.5-14.5) Platelet Count 260 x10^3/uL (140-400) Neutrophils (%) (Auto) 78 % (31-73) Lymphocytes (%) (Auto) 11 % (24-48) Monocytes (%) (Auto) 7 % (0-9) Eosinophils (%) (Auto) 3 % (0-3) Basophils (%) (Auto) 1 % (0-3) Neutrophils # (Auto) 3.3 x10^3/uL (1.8-7.7) Lymphocytes # (Auto) 0.4 x10^3/uL (1.0-4.8) Monocytes # (Auto) 0.3 x10^3/uL (0.0-1.1) Eosinophils # (Auto) 0.1 x10^3/uL (0.0-0.7) Basophils # (Auto) 0.0 x10^3/uL (0.0-0.2) Sodium Level 133 mmol/L (136-145) Potassium Level 4.9 mmol/L (3.5-5.1) Chloride Level 100 mmol/L (98-107) Carbon Dioxide Level 31 mmol/L (21-32) Anion Gap 2 (6-14) Blood Urea Nitrogen 51 mg/dL (7-20) Creatinine 1.6 mg/dL (0.6-1.0) Estimated GFR (Cockcroft-Gault) 32.8 Glucose Level 169 mg/dL (70-99) Calcium Level 8.3 mg/dL (8.5-10.1) PH-Nhb-N-Type Natriuretic Peptide 50908 pg/mL (0-124) Triglycerides Level 124 mg/dL (0-150) Cholesterol Level 169 mg/dL (0-200) LDL Cholesterol, Calculated 70 mg/dL (0-100) VLDL Cholesterol, Calculated 25 mg/dL (0-40) Non-HDL Cholesterol Calculated 95 mg/dL (0-129) HDL Cholesterol 74 mg/dL (40-60) Cholesterol/HDL Ratio 2.3 Free Thyroxine 0.93 ng/dL (0.76-1.46) Assessment and Plan Assessmemt and Plan Problems Medical Problems: (1) Failure to thrive in adult Status: Acute (2) Falls frequently Status: Acute Comment Review of Relevant I have reviewed the following items jovana (where applicable) has been applied. Medications: Current Medications Medications (Trade) Dose Ordered Sig/Henrietta Route PRN Reason Start Time Stop Time Status Last Admin Dose Admin Sodium Chloride 500 ml @ 500 mls/hr 1X ONCE IV 08/19/21 00:30 08/19/21 01:29 DC 08/19/21 00:30 Digoxin (Lanoxin) 500 mcg 1X ONCE IV 08/19/21 00:30 08/19/21 00:45 DC 08/19/21 01:15 Metoprolol Succinate (Toprol Xl) 25 mg DAILY PO 08/19/21 09:15 08/19/21 09:21 Justifications for Admission Other Justification DEANDRA DREW MD Aug 19, 2021 12:09
--- NOTE | 2021-08-19 14:41 | NUR ---
Wound Care: Patient seen per reassessment for bilateral lower leg cellulitis and intertrigo to pannus/groins. The legs have improved since the use of Ammonium lactate has begun. No open wounds at this time. Wound care will sign off at this time. Please re consult wound care regarding any changes.
--- NOTE | 2021-08-19 15:35 | NUR ---
SS following for discharge planning. SS reviewed pt chart and discussed with pt RN. Pt is from home with spouse and is currently on room air. Pt transferred down to ICU for AFIB/RVR. Cardiology consulted. COVID19 negative. Pt on IV Micafungin. PT/OT recommending group home unit. Pt accepted at [facility], ; fax [phone], pending insurance approval. Pt downgraded to [facility]VC now. PT/OT re-ordered. SS will continue to follow for discharge planning.
[2021-08-19] MEDS: HYDROcodone/APAP 5/325MG 1 TAB TABLET PO PRN (16:42)
[2021-08-19] MEDS: INSULIN GLARGINE SYRINGE. SQ SCH (21:00)
[2021-08-19] MEDS: MAGNESIUM OXIDE 400 MG TABLET PO SCH (21:12)
[2021-08-19] MEDS: ATORVASTATIN CALCIUM 10 MG TABLET. PO SCH (21:12)
[2021-08-20] MEDS: oxyCODONE/APAP 10/325 1 TAB TABLET PO PRN ×5 (02:33→21:03)
[2021-08-20 03:00] VITALS: BP 97/51
[2021-08-20] MEDS: LEVOTHYROXINE 25 MCG TABLET. PO SCH (06:08)
[2021-08-20 07:00] VITALS: BP 139/70
[2021-08-20] MEDS: INSULIN LISPRO 300 UNITS/3 ML VIAL. SQ SCH ×3 (07:30→16:47)
[2021-08-20] MEDS: LACTOBACILLUS RHAMNOSUS GG 1 CAPSULE. PO SCH ×2 (08:23→20:30)
[2021-08-20] MEDS: CLOPIDOGREL BISULFATE 75 MG TABLET PO SCH (08:23)
[2021-08-20] MEDS: BUMETANIDE 1 MG TABLET. PO SCH ×2 (08:23→14:19)
[2021-08-20] MEDS: ALLOPURINOL 300 MG TABLET. PO SCH (08:23)
[2021-08-20] MEDS: PANTOPRAZOLE 40 MG TABLET.DR. PO SCH ×2 (08:23→16:42)
[2021-08-20] MEDS: METOPROLOL SUCC 24HR ER 25 MG TAB.ER.24H. PO SCH (08:23)
[2021-08-20] MEDS: ASPIRIN CHEWABLE 81 MG TABLET. PO SCH (08:23)
[2021-08-20] MEDS: POTASSIUM CHLORIDE 20 MEQ TABLET.ER. PO SCH (08:23)
[2021-08-20] MEDS: SERTRALINE 50 MG TABLET. PO SCH (08:24)
[2021-08-20] MEDS: CEFDINIR 300 MG CAPSULE PO SCH ×2 (08:24→20:30)
[2021-08-20] MEDS: NYSTATIN TOPICAL POWDER 15GM BOTTLE. TP SCH ×2 (08:25→20:31)
[2021-08-20] MEDS: AMMONIUM LACTATE 12% TOPICAL LOTION 225GM BOTTLE. TP SCH ×2 (08:25→20:31)
--- NOTE | 2021-08-20 09:50 | PDOC ---
CARDIO Progress Notes Date and Time Date of Service 08/20/2021 Time of Evaluation 0920 Subjective Subjective: No Chest Pain, No shortness of breath, No Palpitations Vitals Vitals Vital Signs Date Time Temp Pulse Resp B/P (MAP) Pulse Ox O2 Delivery O2 Flow Rate FiO2 08/20/21 08:23 81 139/70 08/20/21 08:00 Room Air 08/20/21 07:28 13 100 2.0 08/20/21 07:00 97.7 97.7 Weight Weight [ ] Input and Output Intake and Output Intake and Output 08/20/21 07:00 Intake Total 1320 ml Output Total 900 ml Balance 420 ml Intake Oral 1320 ml Output Urine Total 900 ml Laboratory Labs Laboratory Tests Test 08/19/21 12:05 08/19/21 17:01 08/19/21 21:17 08/20/21 01:58 Glucose (Fingerstick) 143 mg/dL (70-99) 125 mg/dL (70-99) 125 mg/dL (70-99) 125 mg/dL (70-99) Test 08/20/21 08:19 Glucose (Fingerstick) 117 mg/dL (70-99) Physical Exam HEENT: Neck Supple W Full Motion Chest: Symmetric LUNGS: Other (diminished) Heart: RRR (SR) Abdomen: Other (obese) Extremities: Other (chronic LE lyphedema with cellulitis) Neurology: alert, oriented, follow commands Assessment Assessment 1. Bilateral LE cellulitis with chronic lymphedema 2. Hypothyroidism: new. per PCP 3. Debility 4. CKD3 with past hx of HD: reported IV dye related 5. PAFIB with RVR: maintaining SR 6. CAD: past CABG x3 with PCI in 2019 7. Chronic diastolic CHF 8. DM2: per PCP 9. HTN: controlled 10. HLP 11. Morbid obesity Recommendations 1. Metoprolol. ASA and plavix. Discussed possibility of anticoagulation in the future and repeatedly said that she does not want to be on it 2. Secondary prevention measures 3. Antibiotics per ID 4. Will establish cardiology in our office. TTE. today 5. MCOT Justicifation of Admission Dx: Justifications for Admission: Justification of Admission Dx: Yes BRENNA EASLEY APRN Aug 20, 2021 09:49
[2021-08-20] MEDS: MICAFUNGIN 100 MG in IV DEXTROSE 5% 100ML 100 ML IV SCH (10:00)
[2021-08-20 11:38] LABS: CALCIUM 8.2 mg/dL (8.5-10.1); CREATININE 1.6 mg/dL (0.6-1.0); GFR 32.8; POTASSIUM 4.9 mmol/L (3.5-5.1)
--- NOTE | 2021-08-20 12:37 | PDOC ---
[employer] PROGRESS NOTE Date of Service DOS: DATE: 08/20/21 TIME: 12:36 Chief Complaint Chief Complaint Acute PAFIB - was on home metoprolol Subclinical hypothyroidism Chronic lymphedema with superimposed cellulitis, Acute kidney injury. Recurrent fall. Depression and anxiety. Chronic pain, narcotic dependence Cardiology consulted appreciate the recommendationscontinue with metoprolol and pending TTE. Pending anti-thyroid peroxidase Ab Will start on low dose synthroid History of Present Illness History of Present Illness 08/20/2021 No acute events overnight. Patient seen and examined bedside. No major telemetric events. Heart rate has been stable in the 80s on metoprolol. No more digoxin necessary. Pending PT OT evaluation and potential SNF placement afterwards. Patient's chart, labs, images were reviewed and discussed with RN 08/19/2021 Patient had rapid response initiated last night due to A. fib RVR. Heart rate in the 140s. Digoxin 1 dose given and patient reverted back to normal sinus rhythm. Patient hemodynamically stable and asymptomatic at the time. Patient continues to complain of some nausea and weakness. She states that she ate the sausage for breakfast but she feels nausea however she was still eating the sausage when she was nauseous. Patient's chart, labs, images were reviewed and discussed with RN 08/18/2021 No acute events overnight. Patient seen and examined bedside. at bedside assisting with transfers. Patient is willing to go to nursing home facility and family requesting referral [facility] at this time. 08/17 she says she is too weak to go today, cannot transfer, I twice at length discussed that we need to try to DC home everyday, her medical problems are stable, her weakness will improve with effort denied skilled, anxiety and high need noted, she needs to work hard to improve, ready to DC - she cannot transfer to stand, will try to DC everyday, improving per patient good skin care, lesions look really good, continues to be better, no longer having any odor, was high odor 6 days ago Vitals/I&O Vitals/I&O: Vital Signs Date Time Temp Pulse Resp B/P (MAP) Pulse Ox O2 Delivery O2 Flow Rate FiO2 08/20/21 12:24 12 97 Room Air 08/20/21 08:23 81 139/70 08/20/21 07:28 2.0 08/20/21 07:00 97.7 97.7 I & O 08/19/21 08/19/21 08/20/21 15:00 23:00 07:00 Intake Total 960 ml 360 ml Output Total 700 ml 200 ml Balance 960 ml -340 ml -200 ml Physical Exam Physical Exam: GENERAL: Alert and oriented x 3 female, in no acute distress, appears depressed. HEENT: Normocephalic, atraumatic. NECK: Supple, no JVD. LUNGS: Clear. HEART: S1, S2. ABDOMEN: Soft, obese. Bowel sounds present. EXTREMITIES: Chronic lymphedema with cobblestone changes, chronic. Some draining wounds. Mild cellulitis. Per patient it is appearing there is some fecal debris in the legs. NEUROLOGIC: Alert, awake, somewhat weak, depressed. PSYCHIATRIC: Depressed. DERMATOLOGIC: Warm, dry, no generalized rash except for above. General: Alert, Oriented X3, Cooperative, No acute distress Heart: Regular rate (SR), Other (distant heart sounds) Lungs: Wheezing Abdomen: Soft, Other (obese) Extremities: No cyanosis, Other (chronic LE lymphedema) Skin: Other (LE lichenification) Labs Labs: Laboratory Tests Test 08/19/21 17:01 08/19/21 21:17 08/20/21 01:58 08/20/21 08:19 Glucose (Fingerstick) 125 mg/dL (70-99) 125 mg/dL (70-99) 125 mg/dL (70-99) 117 mg/dL (70-99) Test 08/20/21 11:05 08/20/21 12:18 Sodium Level 134 mmol/L (136-145) Potassium Level 4.9 mmol/L (3.5-5.1) Chloride Level 100 mmol/L (98-107) Carbon Dioxide Level 28 mmol/L (21-32) Anion Gap 6 (6-14) Blood Urea Nitrogen 51 mg/dL (7-20) Creatinine 1.6 mg/dL (0.6-1.0) Estimated GFR (Cockcroft-Gault) 32.8 Glucose Level 172 mg/dL (70-99) Calcium Level 8.2 mg/dL (8.5-10.1) Glucose (Fingerstick) 157 mg/dL (70-99) Assessment and Plan Assessmemt and Plan Problems Medical Problems: (1) Failure to thrive in adult Status: Acute (2) Falls frequently Status: Acute Comment Review of Relevant I have reviewed the following items jovana (where applicable) has been applied. Medications: Current Medications Medications (Trade) Dose Ordered Sig/Henrietta Route PRN Reason Start Time Stop Time Status Last Admin Dose Admin Atorvastatin Calcium (Lipitor) 10 mg QHS PO 08/19/21 21:00 08/19/21 21:12 Levothyroxine Sodium (Synthroid) 25 mcg DAILY06 PO 08/20/21 06:00 08/20/21 06:08 Justifications for Admission Other Justification DEANDRA DREW MD Aug 20, 2021 12:37
[2021-08-20 14:15] VITALS: BP 110/79
[2021-08-20 15:00] VITALS: BP 139/55
[2021-08-20] MEDS: HYDROcodone/APAP 5/325MG 1 TAB TABLET PO PRN ×2 (15:08→23:03)
--- NOTE | 2021-08-20 16:04 | NUR ---
SS following up with discharge planning. SS reviewed pt chart and discussed with pt RN. Pt is currently on room air. COVID19 negative. Pt transferred up to 552 today. Pt on IV Micafungin. PT/OT recommended correction unit. Pt accepted at [facility], ; fax [phone], pending insurance approval. Clinical updates phoned and faxed to [facility]. SS will continue to follow for discharge planning.
[2021-08-20 19:55] VITALS: BP 94/64
[2021-08-20] MEDS: INSULIN GLARGINE SYRINGE. SQ SCH (20:30)
[2021-08-20] MEDS: MAGNESIUM OXIDE 400 MG TABLET PO SCH (20:30)
[2021-08-20] MEDS: ATORVASTATIN CALCIUM 10 MG TABLET. PO SCH (20:30)
[2021-08-20 23:19] VITALS: BP 123/54
[2021-08-21] MEDS: oxyCODONE/APAP 10/325 1 TAB TABLET PO PRN ×5 (01:41→21:09)
[2021-08-21 02:51] VITALS: BP 95/55
[2021-08-21] MEDS: ONDANSETRON PF 4 MG/2 ML VIAL. IVP PRN (02:58)
--- NOTE | 2021-08-21 05:02 | NUR ---
Patient non-compliant up all night eating cake, chips, banana and candy then c/o nausea administered Zofran as ordered.
[2021-08-21] MEDS: LEVOTHYROXINE 25 MCG TABLET. PO SCH (05:19)
[2021-08-21] MEDS: PANTOPRAZOLE 40 MG TABLET.DR. PO SCH ×2 (05:20→17:23)
[2021-08-21 07:00] VITALS: BP 182/60
[2021-08-21] MEDS: CEFDINIR 300 MG CAPSULE PO SCH ×2 (08:33→21:05)
[2021-08-21] MEDS: POTASSIUM CHLORIDE 20 MEQ TABLET.ER. PO SCH (08:33)
[2021-08-21] MEDS: BUMETANIDE 1 MG TABLET. PO SCH ×2 (08:33→14:43)
[2021-08-21] MEDS: METOPROLOL SUCC 24HR ER 25 MG TAB.ER.24H. PO SCH (08:34)
[2021-08-21] MEDS: SERTRALINE 50 MG TABLET. PO SCH (08:34)
[2021-08-21] MEDS: LACTOBACILLUS RHAMNOSUS GG 1 CAPSULE. PO SCH ×2 (08:34→21:05)
[2021-08-21] MEDS: ASPIRIN CHEWABLE 81 MG TABLET. PO SCH (08:34)
[2021-08-21] MEDS: CLOPIDOGREL BISULFATE 75 MG TABLET PO SCH (08:34)
[2021-08-21] MEDS: HYDROcodone/APAP 5/325MG 1 TAB TABLET PO PRN ×2 (08:35→14:43)
[2021-08-21] MEDS: ALLOPURINOL 300 MG TABLET. PO SCH (08:35)
[2021-08-21] MEDS: INSULIN LISPRO 300 UNITS/3 ML VIAL. SQ SCH ×3 (08:58→17:27)
[2021-08-21] MEDS: MICAFUNGIN 100 MG in IV DEXTROSE 5% 100ML 100 ML IV SCH (09:00)
[2021-08-21] MEDS: AMMONIUM LACTATE 12% TOPICAL LOTION 225GM BOTTLE. TP SCH ×2 (09:00→21:09)
[2021-08-21] MEDS: NYSTATIN TOPICAL POWDER 15GM BOTTLE. TP SCH ×2 (09:00→21:09)
[2021-08-21 11:00] VITALS: BP 131/40
--- NOTE | 2021-08-21 13:33 | PDOC ---
[employer] PROGRESS NOTE Date of Service DOS: DATE: 08/21/21 TIME: 13:32 Chief Complaint Chief Complaint Acute PAFIB - was on home metoprolol Subclinical hypothyroidism Chronic lymphedema with superimposed cellulitis, Acute kidney injury. Recurrent fall. Depression and anxiety. Chronic pain, narcotic dependence Cardiology consulted appreciate the recommendationscontinue with metoprolol and pending TTE. Pending anti-thyroid peroxidase Ab Will start on low dose synthroid History of Present Illness History of Present Illness 08/21 Patient evaluated examined at bedside. No major overnight events. has been stable from cardiac perspective. Has worked with PT OT recommending SNF. Charts labs images reviewed and discussed with bedside RN. Awaiting insurance authorization and then can discharge. 08/20/2021 No acute events overnight. Patient seen and examined bedside. No major telemetric events. Heart rate has been stable in the 80s on metoprolol. No more digoxin necessary. Pending PT OT evaluation and potential SNF placement afterwards. Patient's chart, labs, images were reviewed and discussed with RN 08/19/2021 Patient had rapid response initiated last night due to A. fib RVR. Heart rate in the 140s. Digoxin 1 dose given and patient reverted back to normal sinus r hythm. Patient hemodynamically stable and asymptomatic at the time. Patient continues to complain of some nausea and weakness. She states that she ate the sausage for breakfast but she feels nausea however she was still eating the sausage when she was nauseous. Patient's chart, labs, images were reviewed and discussed with RN 08/18/2021 No acute events overnight. Patient seen and examined bedside. at bedside assisting with transfers. Patient is willing to go to [facility] facility and family [facility] at this time. 08/17 she says she is too weak to go today, cannot transfer, I twice at length discussed that we need to try to DC home everyday, her medical problems are stable, her weakness will improve with effort denied skilled, anxiety and high need noted, she needs to work hard to improve, ready to DC - she cannot transfer to stand, will try to DC everyday, improving per patient good skin care, lesions look really good, continues to be better, no longer having any odor, was high odor 6 days ago Vitals/I&O Vitals/I&O: Vital Signs Date Time Temp Pulse Resp B/P (MAP) Pulse Ox O2 Delivery O2 Flow Rate FiO2 08/21/21 11:00 98.2 72 20 131/40 (70) 94 Room Air 98.2 08/21/21 06:18 2.0 I & O 08/20/21 08/20/21 08/21/21 15:00 23:00 07:00 Intake Total 240 ml 500 ml 660 ml Output Total 300 ml 150 ml Balance -60 ml 500 ml 510 ml Physical Exam Physical Exam: GENERAL: Alert and oriented x 3 female, in no acute distress, appears depressed. HEENT: Normocephalic, atraumatic. NECK: Supple, no JVD. LUNGS: Clear. HEART: S1, S2. ABDOMEN: Soft, obese. Bowel sounds present. EXTREMITIES: Chronic lymphedema with cobblestone changes, chronic. Some draining wounds. Mild cellulitis. Per patient it is appearing there is some fecal debris in the legs. NEUROLOGIC: Alert, awake, somewhat weak, depressed. PSYCHIATRIC: Depressed. DERMATOLOGIC: Warm, dry, no generalized rash except for above. General: Alert, Oriented X3, Cooperative, No acute distress Heart: Regular rate (SR), Other (distant heart sounds) Lungs: Wheezing Abdomen: Soft, Other (obese) Extremities: No cyanosis, Other (chronic LE lymphedema) Skin: Other (LE lichenification) Labs Labs: Laboratory Tests Test 08/20/21 16:32 08/20/21 20:20 08/21/21 08:01 08/21/21 11:22 Glucose (Fingerstick) 225 mg/dL (70-99) 172 mg/dL (70-99) 148 mg/dL (70-99) 160 mg/dL (70-99) Assessment and Plan Assessmemt and Plan Problems Medical Problems: (1) Failure to thrive in adult Status: Acute (2) Falls frequently Status: Acute Comment Review of Relevant I have reviewed the following items jovana (where applicable) has been applied. Justifications for Admission Other Justification SOL ADDISON MD Aug 21, 2021 13:33
[2021-08-21 15:00] VITALS: BP 126/38
[2021-08-21 19:00] VITALS: BP 119/38
[2021-08-21] MEDS: INSULIN GLARGINE SYRINGE. SQ SCH (21:00)
[2021-08-21] MEDS: MAGNESIUM OXIDE 400 MG TABLET PO SCH (21:05)
[2021-08-21] MEDS: ATORVASTATIN CALCIUM 10 MG TABLET. PO SCH (21:05)
[2021-08-21 23:01] VITALS: BP 116/54
[2021-08-22] MEDS: oxyCODONE/APAP 10/325 1 TAB TABLET PO PRN ×3 (02:18→10:11)
[2021-08-22 03:11] VITALS: BP 158/67
[2021-08-22] MEDS: LEVOTHYROXINE 25 MCG TABLET. PO SCH (06:16)
[2021-08-22 07:00] VITALS: BP 119/36
[2021-08-22] MEDS: INSULIN LISPRO 300 UNITS/3 ML VIAL. SQ SCH (07:30)
[2021-08-22] MEDS: POTASSIUM CHLORIDE 20 MEQ TABLET.ER. PO SCH (08:23)
[2021-08-22] MEDS: CLOPIDOGREL BISULFATE 75 MG TABLET PO SCH (08:23)
[2021-08-22] MEDS: ASPIRIN CHEWABLE 81 MG TABLET. PO SCH (08:23)
[2021-08-22] MEDS: ALLOPURINOL 300 MG TABLET. PO SCH (08:24)
[2021-08-22] MEDS: CEFDINIR 300 MG CAPSULE PO SCH (08:24)
[2021-08-22] MEDS: LACTOBACILLUS RHAMNOSUS GG 1 CAPSULE. PO SCH (08:24)
[2021-08-22] MEDS: PANTOPRAZOLE 40 MG TABLET.DR. PO SCH (08:24)
[2021-08-22] MEDS: SERTRALINE 50 MG TABLET. PO SCH (08:25)
[2021-08-22] MEDS: BUMETANIDE 1 MG TABLET. PO SCH (08:30)
--- NOTE | 2021-08-22 08:59 | SNU/HH DC ---
DISCHARGE ORDERS DISCHARGE INFORMATION: DISCHARGE DATE: Aug 22, 2021 FINAL DIAGNOSIS Problems Medical Problems: (1) Failure to thrive in adult Status: Acute (2) Falls frequently Status: Acute CONDITION ON DISCHARGE: Stable CODE STATUS: Code Status: Full HALF-WAY: SNF STAY <30 DAYS: Yes POST DISCHARGE ORDERS: ACTIVITY ORDERS: Activity as tolerated WEIGHT BEARING STATUS: As tolerated DIET AFTER DISCHARGE: Regular WOUND/INCISION CARE: Ice to area for comfort, Keep wound/cast CDI CHECKS AFTER DISCHARGE: CHECKS AFTER DISCHARGE: Check blood press - daily, Check your Temp as needed TREATMENT/EQUIPMENT ORDERS: ADAPTIVE EQUIPMENT NEEDED: Walker Physical Therapy For: Evalulation/Treatment Occupational Therapy For: Evaluation/Treatment DISCHARGE MEDICATIONS: Home Meds Active Scripts Levothyroxine Sodium (LEVOTHYROXINE SODIUM) 25 Mcg Tablet, 25 MCG PO DAILY06 for hypothyroid for 30 Days, #30 TAB Prov:SOL ADDISON MD 08/22/21 Sertraline Hcl (SERTRALINE HCL) 50 Mg Tablet, 50 MG PO DAILY for depression for 30 Days, #30 TAB Prov:SOL ADDISON MD 08/22/21 Oxycodone/Apap 10-325 (PERCOCET 10-325 MG TABLET ) 1 Each Tablet, 1 TAB PO PRN Q4HRS PRN for MODERATE TO SEVERE PAIN for 10 Days, #30 TAB Prov:SOL ADDISON MD 08/22/21 Hydrocodone/Apap 5-325 (NORCO 5-325 TABLET) 1 Each Tablet, 1 TAB PO PRN Q6HRS PRN for PAIN, #8 TAB 0 Refills Prov:BRAYDEN MORRIS APRN 02/14/18 Orphenadrine Citrate (ORPHENADRINE CITRATE) 100 Mg Tablet.er, 1 TAB PO BID, #20 TAB 1 Refill Prov:BRAYDEN MORRIS APRN 02/14/18 Reported Medications Metoprolol Tartrate (METOPROLOL TARTRATE) 25 Mg Tablet, 25 MG PO DAILY for FOR HYPERTENSION, #60 TAB 0 Refills 08/09/21 Potassium Chloride (Klor-Con 10) 10 Meq Tablet.er, 20 MEQ PO DAILY for supplement, TAB.SR 08/09/21 Pantoprazole Sodium (PANTOPRAZOLE SODIUM ) 40 Mg Tablet.dr, 40 MG PO BID for GERD, TAB 08/09/21 Magnesium Oxide (MAGNESIUM OXIDE) 400 Mg Tablet, 400 MG PO QHS for supplement, TAB 08/09/21 Clopidogrel Bisulfate (CLOPIDOGREL) 75 Mg Tablet, 75 MG PO DAILY for TO PREVENT BLOOD CLOTS, #30 TAB 0 Refills 08/09/21 Iron,Fum&Ps/Fa/Vit B&C#18/L.ca (FUSION PLUS CAPSULE) 1 Each Capsule, 1 CAP PO QHS for iron for 30 Days, #30 CAP 0 Refills 08/09/21 Rosuvastatin Calcium (CRESTOR) 5 Mg Tablet, 5 MG PO HS for FOR CHOLESTEROL, #30 TAB 0 Refills 08/09/21 Bumetanide (BUMETANIDE) 1 Mg Tablet, 1 TAB PO BID for diuretic, #90 TAB 3 Refills 08/09/21 Aspirin (ASPIRIN) 81 Mg Tab.chew, 81 MG PO DAILY for VTE, TAB.CHEW 08/09/21 Allopurinol (ALLOPURINOL) 300 Mg Tablet, 1 TAB PO DAILY for gout, #30 TAB 5 Refills 08/09/21 Discontinued Scripts Prednisone (PREDNISONE) 50 Mg Tablet, 1 TAB PO DAILY, #5 TAB Prov:BRAYDEN MORRIS APRN 02/14/18 SOL ADDISON MD Aug 22, 2021 08:59
[2021-08-22] MEDS: NYSTATIN TOPICAL POWDER 15GM BOTTLE. TP SCH (09:00)
[2021-08-22] MEDS: AMMONIUM LACTATE 12% TOPICAL LOTION 225GM BOTTLE. TP SCH (09:00)
[2021-08-22] MEDS ORDERED: SERT-267 PO (09:17)
[2021-08-22] MEDS ORDERED: OXYC1TAB22 PO (09:17)
[2021-08-22] MEDS ORDERED: LEVO25TA4 PO (09:17)
--- NOTE | 2021-08-22 09:20 | PDOC3 ---
[facility]-Dis[facility] Summary Date of Admission: Date of Admission: Aug 08, 2021 Date of Discharge: Date of Discharge: Aug 22, 2021 Admission Diagnosis: Problems: (1) Failure to thrive in adult Discharge Diagnosis: Discharge Diagnosis: Same Hospital Course: Hospital Course: Chief Complaint Acute PAFIB - was on home metoprolol Subclinical hypothyroidism Chronic lymphedema with superimposed cellulitis, Acute kidney injury. Recurrent fall. Depression and anxiety. Chronic pain, narcotic dependence Cardiology consulted appreciate the recommendationscontinue with metoprolol and pending TTE. Pending anti-thyroid peroxidase Ab Will start on low dose synthroid History of Present Illness History of Present Illness 08/22 Patient evaluated and examined at bedside no major events overnight. Stable. Good for discharge to facility today I Sopent greater than 30 minutes coordinating planning and evaluation the patient [id number] for discharge 08/21 Patient evaluated examined at bedside. No major overnight events. has been stable from cardiac perspective. Has worked with PT OT recommending SNF. Charts labs images reviewed and discussed with bedside RN. Awaiting insurance authorization and then can discharge. 08/20/2021 No acute events overnight. Patient seen and examined bedside. No major telemetric events. Heart rate has been stable in the 80s on metoprolol. No more digoxin necessary. Pending PT OT evaluation and potential SNF placement afterwards. Patient's chart, labs, images were reviewed and discussed with RN 08/19/2021 Patient had rapid response initiated last night due to A. fib RVR. Heart rate in the 140s. Digoxin 1 dose given and patient reverted back to normal sinus rhythm. Patient hemodynamically stable and asymptomatic at the time. Patient continues to complain of some nausea and weakness. She states that she ate the sausage for breakfast but she feels nausea however she was still eating the sausage when she was nauseous. Patient's chart, labs, images were reviewed and discussed with RN 08/18/2021 No acute events overnight. Patient seen and examined bedside. at bedside assisting with transfers. Patient is willing to go to shelter facility and family requesting referral to [facility] at this time. 08/17 she says she is too weak to go today, cannot transfer, I twice at length discussed that we need to try to DC home everyday, her medical problems are stable, her weakness will improve with effort denied skilled, anxiety and high need noted, she needs to work hard to improve, ready to DC - she cannot transfer to stand, will try to DC everyday, improving per patient good skin care, lesions look really good, continues to be better, no longer having any odor, was high odor 6 days ago Disposition: Disposition/Orders: D/C to Another Facility Activity: Activity: Resume previous activity Diet: Diet: Cardiac Medications: Home Meds Active Scripts Levothyroxine Sodium (LEVOTHYROXINE SODIUM) 25 Mcg Tablet, 25 MCG PO DAILY06 for hypothyroid for 30 Days, #30 TAB Prov:SOL ADDISON MD 08/22/21 Sertraline Hcl (SERTRALINE HCL) 50 Mg Tablet, 50 MG PO DAILY for depression for 30 Days, #30 TAB Prov:SOL ADDISON MD 08/22/21 Oxycodone/Apap 10-325 (PERCOCET 10-325 MG TABLET ) 1 Each Tablet, 1 TAB PO PRN Q4HRS PRN for MODERATE TO SEVERE PAIN for 10 Days, #30 TAB Prov:SOL ADDISON MD 08/22/21 Hydrocodone/Apap 5-325 (NORCO 5-325 TABLET) 1 Each Tablet, 1 TAB PO PRN Q6HRS PRN for PAIN, #8 TAB 0 Refills Prov:BRAYDEN MORRIS APRN 02/14/18 Orphenadrine Citrate (ORPHENADRINE CITRATE) 100 Mg Tablet.er, 1 TAB PO BID, #20 TAB 1 Refill Prov:BRAYDEN MORRIS APRN 02/14/18 Reported Medications Metoprolol Tartrate (METOPROLOL TARTRATE) 25 Mg Tablet, 25 MG PO DAILY for FOR HYPERTENSION, #60 TAB 0 Refills 08/09/21 Potassium Chloride (Klor-Con 10) 10 Meq Tablet.er, 20 MEQ PO DAILY for supplement, TAB.SR 08/09/21 Pantoprazole Sodium (PANTOPRAZOLE SODIUM ) 40 Mg Tablet.dr, 40 MG PO BID for GERD, TAB 08/09/21 Magnesium Oxide (MAGNESIUM OXIDE) 400 Mg Tablet, 400 MG PO QHS for supplement, TAB 08/09/21 Clopidogrel Bisulfate (CLOPIDOGREL) 75 Mg Tablet, 75 MG PO DAILY for TO PREVENT BLOOD CLOTS, #30 TAB 0 Refills 08/09/21 Iron,Fum&Ps/Fa/Vit B&C#18/L.ca (FUSION PLUS CAPSULE) 1 Each Capsule, 1 CAP PO QHS for iron for 30 Days, #30 CAP 0 Refills 08/09/21 Rosuvastatin Calcium (CRESTOR) 5 Mg Tablet, 5 MG PO HS for FOR CHOLESTEROL, #30 TAB 0 Refills 08/09/21 Bumetanide (BUMETANIDE) 1 Mg Tablet, 1 TAB PO BID for diuretic, #90 TAB 3 Refills 08/09/21 Aspirin (ASPIRIN) 81 Mg Tab.chew, 81 MG PO DAILY for VTE, TAB.CHEW 08/09/21 Allopurinol (ALLOPURINOL) 300 Mg Tablet, 1 TAB PO DAILY for gout, #30 TAB 5 Refills 08/09/21 Discontinued Scripts Prednisone (PREDNISONE) 50 Mg Tablet, 1 TAB PO DAILY, #5 TAB Prov:BRAYDEN MORRIS APRN 02/14/18 Scheduled Allopurinol (Allopurinol), 1 TAB PO DAILY, (Reported) Aspirin (Aspirin), 81 MG PO DAILY, (Reported) Bumetanide (Bumetanide), 1 TAB PO BID, (Reported) Clopidogrel Bisulfate (Clopidogrel), 75 MG PO DAILY, (Reported) Iron,Fum&Ps/Fa/Vit B&C#18/L.ca (Fusion Plus Capsule), 1 CAP PO QHS, (Reported) Levothyroxine Sodium (Levothyroxine Sodium), 25 MCG PO DAILY06 Magnesium Oxide (Magnesium Oxide), 400 MG PO QHS, (Reported) Metoprolol Tartrate (Metoprolol Tartrate), 25 MG PO DAILY, (Reported) Orphenadrine Citrate (Orphenadrine Citrate), 1 TAB PO BID Pantoprazole Sodium (Pantoprazole Sodium ), 40 MG PO BID, (Reported) Potassium Chloride (Klor-Con 10), 20 MEQ PO DAILY, (Reported) Rosuvastatin Calcium (Crestor), 5 MG PO HS, (Reported) Sertraline Hcl (Sertraline Hcl), 50 MG PO DAILY Scheduled PRN Hydrocodone/Apap 5-325 (Merrill 5-325 Tablet), 1 TAB PO PRN Q6HRS PRN for PAIN Oxycodone/Apap 10-325 (Percocet 10-325 Mg Tablet ), 1 TAB PO PRN Q4HRS PRN for MODERATE TO SEVERE PAIN Discontinued Medications Prednisone (Prednisone), 1 TAB PO DAILY Justicifation of Admission Dx: Justifications for Admission: Justification of Admission Dx: Yes SOL ADDISON MD Aug 22, 2021 09:20
--- NOTE | 2021-08-22 10:43 | NUR ---
Pt discharged to [facility] by stretcher. Spouse in room.
--- NOTE | 2021-08-22 10:48 | NUR ---
Report called to [facility], spoke with Rosa Maria SWENSON.
--- NOTE | 2021-08-22 12:15 | NUR ---
SW following. Discussed with RN, discharge orders emailed to [facility] by [facility] financial project manager, as their fax machine was down. Transportation arranged by [facility] for 1030. RN was aware.
== END 2021-08-22 10:43 | DRG 871 ==
LOC: ER 15:37 → 4 NORTH 17:04 → 1 WEST ICU 08-19 01:00 → 5 SOUTH 08-20 15:41
PROVIDERS: ADMIT Internal Medicine; ATTEND Internal Medicine
DX: A41.9 Sepsis, unspecified organism (principal); N17.0 Acute kidney failure with tubular necrosis; L03.115 Cellulitis of right lower limb; F11.20 Opioid dependence, uncomplicated; I13.0 Hypertensive heart and chronic kidney disease with heart failure and stage 1 through stage 4 chronic kidney disease, or unspecified chronic kidney disease; I50.32 Chronic diastolic (congestive) heart failure; L03.116 Cellulitis of left lower limb; E03.8 Other specified hypothyroidism; E11.22 Type 2 diabetes mellitus with diabetic chronic kidney disease; E66.01 Morbid (severe) obesity due to excess calories; E78.00 Pure hypercholesterolemia, unspecified; E78.5 Hyperlipidemia, unspecified; F32.A Depression, unspecified; F41.9 Anxiety disorder, unspecified; G89.29 Other chronic pain; I25.10 Atherosclerotic heart disease of native coronary artery without angina pectoris; I48.0 Paroxysmal atrial fibrillation; I87.2 Venous insufficiency (chronic) (peripheral); I89.0 Lymphedema, not elsewhere classified; N18.30 Chronic kidney disease, stage 3 unspecified; R29.6 Repeated falls; R62.7 Adult failure to thrive; W18.11XA Fall from or off toilet without subsequent striking against object, initial encounter; Y92.002 Bathroom of unspecified non-institutional (private) residence as the place of occurrence of the external cause; Z83.3 Family history of diabetes mellitus; Z85.42 Personal history of malignant neoplasm of other parts of uterus; Z87.891 Personal history of nicotine dependence; Z88.0 Allergy status to penicillin; Z90.710 Acquired absence of both cervix and uterus; Z95.1 Presence of aortocoronary bypass graft; Z95.5 Presence of coronary angioplasty implant and graft; Z98.84 Bariatric surgery status; K21.9 Gastro-esophageal reflux disease without esophagitis; M19.90 Unspecified osteoarthritis, unspecified site
CPT/HCPCS: 36415; 73030; 73080; 80048; 80053; 80061; 82550; 82962; 83036; 83735; 83880; 84439; 84443; 84484; 85025; 86376; 87426; J0692; J1160; J1815; J1956; J2248; J2405; J3010; J3490; J7040; J7060; U0003; U0005; 97110-GO; 97110-GP; 97530-GO; 97530-GP; 97535-GO; 99285-25; G0378